=== PATIENT | male | born 1945 ===

== ENCOUNTER 2018-07-07 13:14 | Inpatient (IN) | payer MEDICARE ==
--- NOTE | 2018-07-07 14:40 | ED PDOC ---
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 Son said that he found patient passed out leaning over an object in his room standing up, not on the ground around 1230 today s/p hearing a sound from upstairs. Son reports then calling patient's name to which he woke up a little, but then passed out again for less than a minute. Denies seizure like activity. Patient then regained consciousness slowly and after EMS gave him orange juice, he returned to baseline mental status. He was previously seen at [facility] after a similar episode where he was not admitted and d/c for MRI follow up after a negative ED workup. His MRI a month ago showed dementia, and not stroke. Otherwise, patient currently has no complaints. PMD: Stephane Cortes NIHSS Stroke Scale - Date/Time Evaluation Performed Date Performed: 07/07/18 Time Performed: 13:54 When Was NIHSS Performed: Baseline - How Severe is the Stroke Level of Consciousness: 0=Alert LOC to Questions: 0=Both comments correct LOC to commands: 0=Obeys both correctly Best Gaze: 0=Normal Visual: 0=No visual loss Facial: 0=Normal Motor Arm - Left: 0=No drift Motor Arm - Right: 0=No drift Motor Leg - Left: 0=No drift Motor Leg - Right: 0=No drift Limb Ataxia: 0=Absent Sensory: 0=Normal Best Language: 0=No aphasia Dysarthia: 0=Normal articulation Extinction & Inattention (Neglect): 0=Normal, no object Score: 0 Past Medical History Reviewed: Historical Data, Nursing Documentation, Vital Signs Vital Signs: Last Vital Signs Temp 97.7 F 07/07/18 13:16 Pulse 67 07/07/18 13:16 Resp 16 07/07/18 13:16 BP 141/88 07/07/18 13:16 Pulse Ox 99 07/07/18 13:16 - Medical History PMH: Dementia - Surgical History Surgical History: No Surg Hx - Family History Family History: States: Unknown Family Hx - Living Arrangements Living Arrangements: With Family - Social History Current smoker - smoking cessation education provided: No Alcohol: None Drugs: Denies - Home Medications Home Medications: Ambulatory Orders Medication Instructions Recorded Aspirin [Ecotrin] 81 mg PO DAILY 07/07/18 Divalproex [Depakote DR] 250 mg PO HS 07/07/18 Glimepiride [amaRYL] 2 mg PO DAILY 07/07/18 Memantine HCl/Donepezil HCl 1 cap PO HS 07/07/18 [Namzaric 28 mg-10 mg Capsule] MetFORMIN [glucoPHAGE] 1,000 mg PO BID 07/07/18 Montelukast [Singulair] 10 mg PO HS 07/07/18 Multivit-Min/Folic/Vit K/Lycop 1 tab PO DAILY 07/07/18 [One-A-Day Men's Tablet] Pantoprazole Sodium [Protonix] 40 mg PO DAILY 07/07/18 Ramipril [Altace] 2.5 mg PO DAILY 07/07/18 - Allergies Allergies/Adverse Reactions: Allergies Allergy/AdvReac Type Severity Reaction Status Date / Time No Known Allergies Allergy Verified 07/07/18 13:18 Review of Systems ROS Statement: Except As Marked, All Systems Reviewed And Found Negative Neurological: Positive for: Other (syncopal episode). Negative for: Seizures Physical Exam - Reviewed Nursing Documentation Reviewed: Yes Vital Signs Reviewed: Yes - Physical Exam Appears: Positive for: No Acute Distress Head Exam: Positive for: ATRAUMATIC, NORMAL INSPECTION, NORMOCEPHALIC Skin: Positive for: Normal Color, Warm, Dry Eye Exam: Positive for: Normal appearance, EOMI, PERRL ENT: Positive for: Normal ENT Inspection Neck: Positive for: Normal, Painless ROM, Supple Cardiovascular/Chest: Positive for: Regular Rate, Rhythm Respiratory: Positive for: Normal Breath Sounds. Negative for: Respiratory Distress Gastrointestinal/Abdominal: Positive for: Normal Exam, Soft. Negative for: Tenderness Back: Positive for: Normal Inspection Extremity: Positive for: Normal ROM (all extremities). Negative for: Calf T enderness Neurological/Psych: Positive for: Awake, Alert, Normal Tone, Symmetric/Intact Strength (upper/lower bilateral extremities), Oriented (x3), Mood/Affect (normal), Gait (steady, unassisted), waiter II-XII (intact). Negative for: Motor/Sensory Deficits, Facial Droop - Laboratory Results Result Diagrams: 07/08/18 04:20 07/08/18 04:20 - ECG O2 Sat by Pulse Oximetry: 99 (RA) Pulse Ox Interpretation: Normal - Radiology X-Ray: Interpreted by Ne X-Ray Interpretation: No Acute Disease Medical Decision Making Medical Decision Making: Time: 1422 Initial Impression: syncopal episode in setting of known dementia Initial Plan: --CT head without contrast --EKG --CMP --Magnesium chemistry --Phosphorus chemistry --Trop I --U-dip --CBC with differential --PTT / PT --CXR --Urinalysis --Accucheck --Orthostatic BP --Reevaluation Accession No. : [id number] Patient Name / ID : RAKEL BOYLE / [id number] Exam Date : 07/07/2018 15:15:43 ( Approved ) Study Comment : Sex / Age : M / 73Y Creator : christie rosa Dictator : Vik Sepulveda MD Hat Sizer : Java Security Architect : Vik Sepulveda MD Approver2 : Report Date : 07/07/2018 15:55:57 My Comment : * This report is currently processing and HAS NOT BEEN OFFICIALLY SIGNED BY THE PHYSICIAN - ESTIMATED TIME OF APPROVAL IS 07/07/2018 16:40. Date of service: 07/07/2018 PROCEDURE: CT HEAD WITHOUT CONTRAST. HISTORY: Syncope COMPARISON: None available. TECHNIQUE: Axial computed tomography images were obtained through the head/brain without intravenous contrast. Radiation dose: Total exam DLP = 900.94 mGy-cm. This CT exam was performed using one or more of the following dose reduction techniques: Automated exposure control, adjustment of the mA and/or kV according to patient size, and/or use of iterative reconstruction technique. FINDINGS: HEMORRHAGE: No intracranial hemorrhage. BRAIN: No mass effect or edema. No significant atrophy. Minimal periventricular white matter lucency consistent with chronic microvascular ischemic change. 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 No evidence of acute infarct. VENTRICLES: Unremarkable. No hydrocephalus. CALVARIUM: Unremarkable. PARANASAL SINUSES: Unremarkable as visualized. No significant inflammatory changes. MASTOID AIR CELLS: Unremarkable as visualized. No inflammatory changes. OTHER FINDINGS: None. IMPRESSION: No intracranial mass, hemorrhage or evidence of acute infarct. Minimal chronic white matter ischemic change. Old left basal ganglia lacunar infarct. [address] Beckwith who is agreeable for patient admission for syncope. Scribe Attestation: Documented by Anitha Arana, acting as a scribe for Shira Campa MD. Provider Scribe Attestation: All medical record entries made by the Scribe were at my direction and personally dictated by me. I have reviewed the chart and agree that the record accurately reflects my personal performance of the history, physical exam, medical decision making, and the department course for this patient. I have also personally directed, reviewed, and agree with the discharge instructions and disposition. Disposition - Clinical Impression Clinical Impression: Syncope - Patient ED Disposition Is Patient to be Admitted: Yes - Disposition Disposition Time: 16:45 Condition: STABLE - Pt Status Changed To: Hospital Disposition Of: Inpatient - Admit Certification Admit to Inpatient:: After my assessment, the patient will require hospitalization for at least two midnights. This is because of the severity of symptoms shown, intensity of services needed, and/or the medical risk in this patient being treated as an outpatient. - POA Present On Arrival: Poor Glycemic Control
[2018-07-07 14:47] LABS: BASO # 0.1 K/uL (0.0-0.2); BASO % 1.6 % (0.0-2.0); EOS # 0.6 K/uL (0.0-0.7); EOS % 9.7 % (0.0-4.0); HEMOGLOBIN 13.4 g/dL (12.0-18.0); INR 1.1; LYMPH # 1.5 K/uL (1.0-4.3); LYMPH % 25.9 % (20.0-40.0); MEAN CELL VOLUME 88.8 fl (80.0-94.0); MEAN CORPUSCULAR HGB CONC 33.7 g/dL (33.0-37.0); MONO # 0.4 K/uL (0.0-0.8); NEUT # 3.3 K/uL (1.8-7.0); NEUT % 55.8 % (50.0-75.0); NRBC % 0.1 % (0.0-0.0); PROTHROMBIN TIME 12.1 Seconds (9.8-13.1); RBC 4.47 Mil/uL (4.40-5.90); RED CELL DISTRIBUTION WIDTH 14.3 % (11.5-14.5); WHITE BLOOD COUNT 5.9 K/uL (4.8-10.8)
[2018-07-07 14:49] LABS: PARTIAL THROMBOPLASTIN TIME 36.6 Seconds (25.6-37.1)
[2018-07-07 14:53] LABS: ALB/GLOB RATIO 1.2 (1.0-2.1); ALT/SGPT 27 U/L (21-72); AST/SGOT 23 U/L (17-59); BLOOD UREA NITROGEN 18 mg/dl (9-20); CALCIUM 9.3 mg/dL (8.4-10.2); GFR NON-AFRICAN AMERICAN > 60
[2018-07-07] MEDS ORDERED: Sodium Chloride 0.9% 1,000 ML IV STA (15:44)
--- NOTE | 2018-07-07 16:38 | CT ---
Date of service: 07/07/2018 PROCEDURE: CT HEAD WITHOUT CONTRAST. HISTORY: Syncope COMPARISON: None available. TECHNIQUE: Axial computed tomography images were obtained through the head/brain without intravenous contrast. Radiation dose: Total exam DLP = 900.94 mGy-cm. This CT exam was performed using one or more of the following dose reduction techniques: Automated exposure control, adjustment of the mA and/or kV according to patient size, and/or use of iterative reconstruction technique. FINDINGS: HEMORRHAGE: No intracranial hemorrhage. BRAIN: No mass effect or edema. No significant atrophy. Minimal periventricular white matter lucency consistent with chronic microvascular ischemic change. 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 No evidence of acute infarct. VENTRICLES: Unremarkable. No hydrocephalus. CALVARIUM: Unremarkable. PARANASAL SINUSES: Unremarkable as visualized. No significant inflammatory changes. MASTOID AIR CELLS: Unremarkable as visualized. No inflammatory changes. OTHER FINDINGS: None. IMPRESSION: No intracranial mass, hemorrhage or evidence of acute infarct. Minimal chronic white matter ischemic change. Old left basal ganglia lacunar infarct.
--- NOTE | 2018-07-07 17:33 | RAD ---
Date of service: 07/07/2018 HISTORY: Syncope COMPARISON: No prior. TECHNIQUE: 1 view obtained. FINDINGS: LUNGS: No active pulmonary disease. PLEURA: No significant pleural effusion identified, no pneumothorax apparent. CARDIOVASCULAR: No aortic atherosclerotic calcification present. Normal cardiac size. No pulmonary vascular congestion. OSSEOUS STRUCTURES: No significant abnormalities. VISUALIZED UPPER ABDOMEN: Normal. OTHER FINDINGS: None. IMPRESSION: No active disease.
[2018-07-07 19:07] LABS: URINE BACTERIA RARE (<OCC); URINE BILIRUBIN NEGATIVE (NEGATIVE); URINE BLOOD NEGATIVE (NEGATIVE); URINE CLARITY SLIGHTY-CLOUDY (Clear); URINE COLOR YELLOW (YELLOW); URINE GLUCOSE (UA) 50 mg/dL (NEGATIVE); URINE LEUKOCYTE ESTERASE NEG Leu/uL (Negative); URINE PROTEIN 30 mg/dL (NEGATIVE)
[2018-07-07] MEDS ORDERED: Sodium Chloride 0.9% 1,000 ML IV SCH (22:45)
[2018-07-07] MEDS: Divalproex 250 mg DR(BID formulation) PO SCH (23:04)
[2018-07-08] MEDS ORDERED: Influenza Vaccine 60 mcg/0.5 mL SYR (4YR UP) IM ONE (05:15)
[2018-07-08 05:35] LABS: HEMOGLOBIN 13.3 g/dL (12.0-18.0); MEAN CELL VOLUME 87.7 fl (80.0-94.0); MEAN CORPUSCULAR HEMOGLOBIN 29.7 pg (27.0-31.0); MEAN CORPUSCULAR HGB CONC 33.8 g/dL (33.0-37.0); RBC 4.46 Mil/uL (4.40-5.90); RED CELL DISTRIBUTION WIDTH 14.6 % (11.5-14.5); WHITE BLOOD COUNT 7.4 K/uL (4.8-10.8)
[2018-07-08 05:38] LABS: BLOOD UREA NITROGEN 19 mg/dl (9-20); CALCIUM 9.2 mg/dL (8.4-10.2); GFR NON-AFRICAN AMERICAN > 60; HDL CHOLESTEROL 36 MG/DL (30-70)
[2018-07-08 05:48] LABS: LDL CHOLESTEROL 132 mg/dL (0-129)
[2018-07-08] MEDS ORDERED: Influenza Vaccine (5 YR UP)/PF 60 MCG/0.5 ML SYR IM ONE (06:00)
[2018-07-08 06:08] LABS: T3 1.05 nmol/L (1.49-2.60)
[2018-07-08] MEDS: Pantoprazole 40 mg EC Tab PO SCH (08:53)
[2018-07-08] MEDS: GlipiZIDE 5 mg SR Tab PO SCH (08:54)
--- NOTE | 2018-07-08 09:14 | CP.PCM.CON ---
<Sophia Leon - Last Filed: 07/08/18 19:04> History of Present Illness - History of Present Illness History of Present Illness: Sophia Leon, PGY-1, Cardiology Consult Note for Dr. Moore 73 year old male with past medical history of hypertension and diabetes mellitus presents with dizziness that started last week. Patient reports that he was dizzy while walking from the bed to the bathroom. He felt like he was spinning around the room. Patient reports mild tinnitus but no hearing loss. Patient reports dizziness stopped a few days ago. Patient denied loss of consciousness and said this had never happened before. However, ED note reports patient presented with son and son found patient passed out leaning over an object in the room standing up. Son had denied seizure like activity. Patient then regained consciousness and came back to baseline slowly after drinking orange juice. Patient had MRI for similar episode one month ago showing dementia but not stroke. Patient today denies chest pain, shortness of breath, nausea, diaphoresis. PMH: as stated above PSH: denies FMHx: denies SHx: smoked for a few years with 1-2 cigarettes a day over 20 years ago, denies alcohol or recreational drug use Allergies: NKDA PMD: Dr. Gomez Denies prior stress test or cardiac catheterizations. Review of Systems - Review of Systems Review of Systems: except for what was mentioned in HPI Past Patient History - Past Medical History & Family History Past Medical History?: Yes - Past Social History Alcohol: None Drugs: Denies - CARDIAC Hx Cardiac Disorders: Yes Hx Hypercholesterolemia: Yes Hx Hypertension: Yes - PULMONARY Hx Respiratory Disorders: No - NEUROLOGICAL Hx Dementia: Yes - HEENT Hx HEENT Problems: No - RENAL Hx Chronic Kidney Disease: No - ENDOCRINE/METABOLIC Hx Endocrine Disorders: Yes Hx Diabetes Mellitus Type 2: Yes - HEMATOLOGICAL/ONCOLOGICAL Hx Blood Disorders: No - INTEGUMENTARY Hx Dermatological Problems: No - MUSCULOSKELETAL/RHEUMATOLOGICAL Hx Musculoskeletal Disorders: Yes Hx Falls: Yes - GASTROINTESTINAL Hx Gastrointestinal Disorders: No - GENITOURINARY/GYNECOLOGICAL Hx Genitourinary Disorders: No - PSYCHIATRIC Hx Psychophysiologic Disorder: No Hx Substance Use: No - SURGICAL HISTORY Hx Surgeries: No - ANESTHESIA Hx Anesthesia: Yes Hx Anesthesia Reactions: No Hx Malignant Hyperthermia: No Has any member of the family had a problem w/ anesthesia?: No Meds Home Medications: Home Medication List Medication Instructions Recorded Confirmed Type Atorvastatin [Lipitor] 20 mg PO DAILY #30 tab 07/14/18 Rx DiphenhydrAMINE [Benadryl] 25 mg PO Q6 PRN cap 07/14/18 Rx Metoprolol Tartrate [Lopressor] 12.5 mg PO Q12 #60 tab 07/14/18 Rx hydroCHLOROthiazide [Hydrodiuril] 25 mg PO DAILY #30 tab 07/14/18 Rx Allergies/Adverse Reactions: Allergies Allergy/AdvReac Type Severity Reaction Status Date / Time No Known Allergies Allergy Verified 07/07/18 13:18 - Medications Medications: Current Medications Aspirin (Ecotrin) 81 mg PO DAILY [facility] Last Admin: 07/08/18 08:53 Dose: 81 mg Divalproex Sodium (Depakote Dr(*Bid*)) 250 mg PO HS [facility] Last Admin: 07/07/18 23:04 Dose: 250 mg Glipizide (Glucotrol Xl) 5 mg PO ACB [facility] Last Admin: 07/08/18 08:54 Dose: 5 mg Home Med (Memantine Hcl/Donepezil Hcl [Namzaric 28 Mg-10 Mg Capsule]) 1 cap PO HS [facility] Metformin HCl (Glucophage) 1,000 mg PO BIDWM [facility] Last Admin: 07/08/18 08:53 Dose: 1,000 mg Montelukast Sodium (Singulair) 10 mg PO HS [facility] Pantoprazole Sodium (Protonix Ec Tab) 40 mg PO DAILY [facility] Last Admin: 07/08/18 08:53 Dose: 40 mg Ramipril (Altace) 2.5 mg PO DAILY [facility] Last Admin: 07/08/18 08:53 Dose: 2.5 mg Physical Exam - Constitutional Appears: Well, Non-toxic, No Acute Distress - Head Exam Head Exam: ATRAUMATIC, NORMAL INSPECTION, NORMOCEPHALIC - Eye Exam Eye Exam: EOMI, PERRL - ENT Exam ENT Exam: Mucous Membranes Moist - Respiratory Exam Respiratory Exam: Clear to Auscultation Bilateral, NORMAL BREATHING PATTERN - Cardiovascular Exam Cardiovascular Exam: REGULAR RHYTHM, RRR, +S1, +S2, Systolic Murmur (systolic ejection murmur) - GI/Abdominal Exam GI & Abdominal Exam: Normal Bowel Sounds, Soft. absent: Tenderness - Extremities Exam Extremities exam: Positive for: full ROM, normal inspection. Negative for: pedal edema - Neurological Exam Neurological exam: Alert, CN II-XII Intact, Oriented x3 - Psychiatric Exam Psychiatric exam: Normal Affect, Normal Mood - Skin Skin Exam: Dry, Intact, Normal Color Results - Vital Signs Recent Vital Signs: Last Vital Signs Temp 97.9 F 07/08/18 07:42 Pulse 61 07/08/18 07:42 Resp 18 07/08/18 07:42 BP 160/78 H 07/08/18 08:53 Pulse Ox 96 07/08/18 07:42 - Labs Result Diagrams: 07/08/18 04:20 07/08/18 04:20 Labs: Laboratory Results - last 24 hr 07/07/18 07/07/18 07/07/18 13:17 14:20 14:20 WBC 5.9 RBC 4.47 Hgb 13.4 Hct 39.7 MCV 88.8 MCH 30.0 MCHC 33.7 RDW 14.3 Plt Count 217 MPV 9.0 Neut % (Auto) 55.8 Lymph % (Auto) 25.9 Sierra % (Auto) 7.0 Eos % (Auto) 9.7 H Baso % (Auto) 1.6 Neut # (Auto) 3.3 Lymph # (Auto) 1.5 Sierra # (Auto) 0.4 Eos # (Auto) 0.6 Baso # (Auto) 0.1 PT INR APTT Sodium 140 Potassium 4.0 Chloride 101 Carbon Dioxide 29 Anion Gap 14 BUN 18 Creatinine 1.0 Est GFR ( Amer) > 60 Est GFR (Non-Af Amer) > 60 POC Glucose (mg/dL) 234 H Random Glucose 241 H Calcium 9.3 Phosphorus Magnesium Total Bilirubin 0.4 AST 23 ALT 27 Alkaline Phosphatase 89 Troponin I < 0.0120 Total Protein 7.3 Albumin 4.0 Globulin 3.3 Albumin/Globulin Ratio 1.2 Triglycerides Cholesterol LDL Cholesterol Direct HDL Cholesterol Thyroxine (T4) Total T3 TSH 3rd Generation Urine Color Urine Clarity Urine pH Ur Specific Sully Urine Protein Urine Glucose (UA) Urine Ketones Urine Blood Urine Nitrate Urine Bilirubin Urine Urobilinogen Ur Leukocyte Esterase Urine RBC (Auto) Urine Microscopic WBC Urine Bacteria Hyaline Casts 07/07/18 07/07/18 07/07/18 14:20 18:37 18:39 WBC RBC Hgb Hct MCV MCH MCHC RDW Plt Count MPV Neut % (Auto) Lymph % (Auto) Sierra % (Auto) Eos % (Auto) Baso % (Auto) Neut # (Auto) Lymph # (Auto) Sierra # (Auto) Eos # (Auto) Baso # (Auto) PT 12.1 INR 1.1 APTT 36.6 Sodium Potassium Chloride Carbon Dioxide Anion Gap BUN Creatinine Est GFR ( Amer) Est GFR (Non-Af Amer) POC Glucose (mg/dL) 216 H Random Glucose Calcium Phosphorus Magnesium Total Bilirubin AST ALT Alkaline Phosphatase Troponin I Total Protein Albumin Globulin Albumin/Globulin Ratio Triglycerides Cholesterol LDL Cholesterol Direct HDL Cholesterol Thyroxine (T4) Total T3 TSH 3rd Generation Urine Color Yellow Urine Clarity Slighty-cloudy Urine pH 6.0 Ur Specific Sully 1.020 Urine Protein 30 Urine Glucose (UA) 50 Urine Ketones Negative Urine Blood Negative Urine Nitrate Negative Urine Bilirubin Negative Urine Urobilinogen 4.0 Ur Leukocyte Esterase Neg Urine RBC (Auto) 3 Urine Microscopic WBC 2 Urine Bacteria Rare Hyaline Casts 6-10 H 07/07/18 07/07/18 07/08/18 19:00 21:02 04:20 WBC 7.4 RBC 4.46 Hgb 13.3 Hct 39.2 MCV 87.7 MCH 29.7 MCHC 33.8 RDW 14.6 H Plt Count 232 MPV Neut % (Auto) Lymph % (Auto) Sierra % (Auto) Eos % (Auto) Baso % (Auto) Neut # (Auto) Lymph # (Auto) Sierra # (Auto) Eos # (Auto) Baso # (Auto) PT INR APTT Sodium Potassium Chloride Carbon Dioxide Anion Gap BUN Creatinine Est GFR ( Amer) Est GFR (Non-Af Amer) POC Glucose (mg/dL) 223 H Random Glucose Calcium Phosphorus 3.4 Magnesium 1.9 Total Bilirubin AST ALT Alkaline Phosphatase Troponin I Total Protein Albumin Globulin Albumin/Globulin Ratio Triglycerides Cholesterol LDL Cholesterol Direct HDL Cholesterol Thyroxine (T4) Total T3 TSH 3rd Generation Urine Color Urine Clarity Urine pH Ur Specific Sully Urine Protein Urine Glucose (UA) Urine Ketones Urine Blood Urine Nitrate Urine Bilirubin Urine Urobilinogen Ur Leukocyte Esterase Urine RBC (Auto) Urine Microscopic WBC Urine Bacteria Hyaline Casts 07/08/18 07/08/18 04:20 05:20 WBC RBC Hgb Hct MCV MCH MCHC RDW Plt Count MPV Neut % (Auto) Lymph % (Auto) Sierra % (Auto) Eos % (Auto) Baso % (Auto) Neut # (Auto) Lymph # (Auto) Sierra # (Auto) Eos # (Auto) Baso # (Auto) PT INR APTT Sodium 141 Potassium 4.0 Chloride 103 Carbon Dioxide 30 Anion Gap 12 BUN 19 Creatinine 1.0 Est GFR ( Amer) > 60 Est GFR (Non-Af Amer) > 60 POC Glucose (mg/dL) 132 H Random Glucose 137 H Calcium 9.2 Phosphorus Magnesium Total Bilirubin AST ALT Alkaline Phosphatase Troponin I < 0.0120 Total Protein Albumin Globulin Albumin/Globulin Ratio Triglycerides 179 H Cholesterol 210 H LDL Cholesterol Direct 132 H HDL Cholesterol 36 Thyroxine (T4) 7.35 Total T3 1.05 L TSH 3rd Generation 3.27 Urine Color Urine Clarity Urine pH Ur Specific Sully Urine Protein Urine Glucose (UA) Urine Ketones Urine Blood Urine Nitrate Urine Bilirubin Urine Urobilinogen Ur Leukocyte Esterase Urine RBC (Auto) Urine Microscopic WBC Urine Bacteria Hyaline Casts Assessment & Plan (1) Syncope Assessment and Plan: Orthostatic vital signs did not show significant drop in blood pressure. Echocardiogram shows moderate and AI Will need stress test for further evaluation Status: Acute (2) Hypertension Assessment and Plan: Last blood pressure was 165/88 Will increase dose of ramipril to 5 mg Status: Acute (3) Diabetes mellitus Assessment and Plan: Patient is currently euglycemic Continue with metformin and glipizide. Status: Acute - Date & Time Date: 07/08/18 Time: 09:15 <Haim Beckwith - Last Filed: 07/17/18 18:42> Meds - Medications Medications: Current Medications Aspirin (Ecotrin) 81 mg PO DAILY [facility] Last Admin: 07/17/18 08:35 Dose: 81 mg Atorvastatin Calcium (Lipitor) 20 mg PO DAILY [facility] Last Admin: 07/17/18 08:37 Dose: 20 mg Diphenhydramine HCl (Benadryl) 25 mg PO Q6 PRN PRN Reason: Itching / Pruritus Divalproex Sodium (Depakote Dr(*Bid*)) 250 mg PO [facility] Last Admin: 07/16/18 21:26 Dose: 250 mg Glipizide (Glucotrol Xl) 5 mg PO ACB [facility] Last Admin: 07/17/18 08:36 Dose: 5 mg Home Med (Memantine Hcl/Donepezil Hcl [Namzaric 28 Mg-10 Mg Capsule]) 1 cap PO [facility] Last Admin: 07/16/18 21:25 Dose: 1 cap Hydrochlorothiazide (Hydrodiuril) 25 mg PO DAILY [facility] Last Admin: 07/17/18 08:37 Dose: 25 mg Insulin Human Lispro (Humalog) 0 units SC ACHS [facility]; Protocol Last Admin: 07/17/18 16:52 Dose: Not Given Metformin HCl (Glucophage) 1,000 mg PO BIDWM [facility] Last Admin: 07/17/18 16:52 Dose: Not Given Metoprolol Tartrate (Lopressor) 12.5 mg PO Q12 [facility] Last Admin: 07/17/18 08:37 Dose: 12.5 mg Montelukast Sodium (Singulair) 10 mg PO [facility] Last Admin: 07/16/18 21:26 Dose: 10 mg Pantoprazole Sodium (Protonix Ec Tab) 40 mg PO DAILY [facility] Last Admin: 07/17/18 08:37 Dose: 40 mg Ramipril (Altace) 5 mg PO DAILY [facility] Last Admin: 07/17/18 08:35 Dose: 5 mg Results - Vital Signs Recent Vital Signs: Last Vital Signs Temp 97.8 F 07/17/18 16:41 Pulse 83 07/17/18 16:41 Resp 16 07/17/18 16:41 BP 107/66 07/17/18 16:41 Pulse Ox 95 07/17/18 16:41 - Labs Result Diagrams: 07/14/18 05:00 07/14/18 05:00 Labs: Laboratory Results - last 24 hr 07/16/18 07/16/18 07/17/18 21:02 22:30 05:18 POC Glucose (mg/dL) 172 H 167 H 152 H 07/17/18 07/17/18 11:17 16:08 POC Glucose (mg/dL) 192 H 216 H Assessment & Plan (1) Aortic stenosis Status: Acute (2) CAD (coronary artery disease) Status: Acute (3) Abnormal stress test Status: Acute (4) Syncope Status: Acute Priority: High (5) Hypertension Status: Chronic Priority: High (6) Hyperglycemia Status: Acute Priority: High (7) Diabetes mellitus Status: Chronic Priority: Medium
--- NOTE | 2018-07-08 13:19 | CARD ---
APPROVED REPORT Date of service: 07/07/2018 EKG Measurement Heart [id number] <Conclusion> Normal sinus rhythm Normal ECG
--- NOTE | 2018-07-08 14:50 | PCM.EEG ---
Electroencephalogram Report - Electroencephalogram Report Procedure Date: 07/08/18 Medication: Deapkote, Ramipril Interpretation: Technical Information: This was a 16 -channel EEG, 1-channel EKG routine EEG performed using an [employer]form machine. Electrodes were applied using the 10/20 international placement system. Start; 11;21 End; 12;06 Total 45 min linical Information: syncope During resting wakefulness there was a symmetric posterior dominant rhythm at 8.5-9.5 Hz, 30-50 uV, which was reactive to eye opening and closing. Drowsiness (11;42) was associated with fragmentation of the posterior dominant rhythm and with slow roving eye movements. Light sleep (12;04) was recorded and was characterized by central vertex waves, sleep spindles, and bilateral theta slowing. Hyperventilation was not performed. Photic stimulation was performed and there were no changes on the record. Focal abnormality; none ECG was associated with a normal sinus rhythm. Impression: This is a normal awake drowsy and sleep electroencephalogram.
--- NOTE | 2018-07-08 14:56 | CP.PCM.HP ---
History of Present Illness - History of Present Illness History of Present Illness: CC: Neurological deficit. 73 y/o M, PMH: Dementia, HTN, DMII, High-Cholesterol, Pt was brought to ER [facility] on 07/07/28 due to neurological deficit associated to syncopal episode while at home lining over the wall, associated to LOC, denied fall, pain or any injury. Worsening symptoms: AMS, as per son, after episode, he was then calling people to which he woke up a little, but then passed out again for less than a minute, after EMS gave him [place] juice he returned to his base line of mental status. Similar episode one month ago, Patient was seen in [facility], MRI Brain no acute changes No aggravated factor. Denied: Fever, chills, n/v/d, abdominal pain, CP, SOB, cough, Hx seizure, sick contact, recent travel out of [facility]. CXR: No active disease. EKG: Normal sinus rhythm. 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 Present on Admission - Present on Admission Any Indicators Present on Admission: No Review of Systems - Constitutional Constitutional: Other (negative) - EENT Eyes: Requires Corrective Lenses Ears: Other (negative) Nose/Mouth/Throat: Other (negative) - Cardiovascular Cardiovascular: Other (negative) - Respiratory Respiratory: Other (negative) - Gastrointestinal Gastrointestinal: Other (negative) - Genitourinary Genitourinary: Other (negative) - Musculoskeletal Musculoskeletal: Other (negative) - Integumentary Integumentary: Other (negative) - Neurological Neurological: Memory Loss, Syncope - Psychiatric Psychiatric: Other (negative) - Endocrine Endocrine: Other (negative) - Hematologic/Lymphatic Hematologic: Other (negative) Past Patient History - Past Medical History & Family History Past Medical History?: Yes Pertinent Family History: Unknown - Past Social History Smoking Status: Former Smoker Alcohol: None Drugs: Denies Home Situation {Lives}: With Family - CARDIAC Hx Cardiac Disorders: Yes Hx Hypercholesterolemia: Yes Hx Hypertension: Yes - PULMONARY Hx Respiratory Disorders: No - NEUROLOGICAL Hx Neurological Disorder: Yes Hx Dementia: Yes Hx Syncope: Yes - HEENT Hx HEENT Problems: No - RENAL Hx Chronic Kidney Disease: No - ENDOCRINE/METABOLIC Hx Endocrine Disorders: Yes Hx Diabetes Mellitus Type 2: Yes - HEMATOLOGICAL/ONCOLOGICAL Hx Blood Disorders: No - INTEGUMENTARY Hx Dermatological Problems: No - MUSCULOSKELETAL/RHEUMATOLOGICAL Hx Musculoskeletal Disorders: Yes Hx Falls: Yes - GASTROINTESTINAL Hx Gastrointestinal Disorders: No - GENITOURINARY/GYNECOLOGICAL Hx Genitourinary Disorders: No - PSYCHIATRIC Hx Psychophysiologic Disorder: No Hx Substance Use: No - SURGICAL HISTORY Hx Surgeries: No - ANESTHESIA Hx Anesthesia: Yes Hx Anesthesia Reactions: No Hx Malignant Hyperthermia: No Has any member of the family had a problem w/ anesthesia?: No Meds Home Medications: Home Medication List Medication Instructions Recorded Confirmed Type Atorvastatin [Lipitor] 20 mg PO DAILY #30 tab 07/14/18 Rx DiphenhydrAMINE [Benadryl] 25 mg PO Q6 PRN cap 07/14/18 Rx Metoprolol Tartrate [Lopressor] 12.5 mg PO Q12 #60 tab 07/14/18 Rx hydroCHLOROthiazide [Hydrodiuril] 25 mg PO DAILY #30 tab 07/14/18 Rx Allergies/Adverse Reactions: Allergies Allergy/AdvReac Type Severity Reaction Status Date / Time No Known Allergies Allergy Verified 07/07/18 13:18 Physical Exam - Constitutional Appears: No Acute Distress - Head Exam Head Exam: NORMAL INSPECTION - Eye Exam Eye Exam: PERRL - ENT Exam ENT Exam: Normal Exam - Neck Exam Neck exam: Positive for: Normal Inspection - Respiratory Exam Respiratory Exam: NORMAL BREATHING PATTERN - Cardiovascular Exam Cardiovascular Exam: REGULAR RHYTHM, Systolic Murmur (2/6 LSB Ao) - GI/Abdominal Exam GI & Abdominal Exam: Normal Bowel Sounds, Soft - Extremities Exam Extremities exam: Positive for: normal inspection - Back Exam Back exam: NORMAL INSPECTION - Neurological Exam Neurological exam: Alert, Oriented x3 Additional comments: Obeys commands, no facial droop. no motor/sensory deficit. - Psychiatric Exam Psychiatric exam: Normal Mood - Skin Skin Exam: Warm Results - Vital Signs Recent Vital Signs: Last Vital Signs Temp 97.5 F L 07/08/18 12:00 Pulse 73 07/08/18 12:00 Resp 18 07/08/18 12:00 BP 169/82 H 07/08/18 12:00 Pulse Ox 93 L 07/08/18 12:00 reviewed Dena - Labs Result Diagrams: 07/14/18 05:00 07/14/18 05:00 Labs: Laboratory Results - last 24 hr 03/07/07/18 07/07/18 14:20 18:37 18:39 WBC RBC Hgb Hct MCV MCH MCHC RDW Plt Count Sodium Potassium Chloride Carbon Dioxide Anion Gap BUN Creatinine Est GFR ( Amer) Est GFR (Non-Af Amer) POC Glucose (mg/dL) 216 H Random Glucose Hemoglobin A1c Calcium Phosphorus Magnesium Troponin I < 0.0120 Triglycerides Cholesterol LDL Cholesterol Direct HDL Cholesterol Vitamin B12 Thyroxine (T4) Total T3 TSH 3rd Generation Urine Color Yellow Urine Clarity Slighty-cloudy Urine pH 6.0 Ur Specific [place] 1.020 Urine Protein 30 Urine Glucose (UA) 50 Urine Ketones Negative Urine Blood Negative Urine Nitrate Negative Urine Bilirubin Negative Urine Urobilinogen 4.0 Ur Leukocyte Esterase Neg Urine RBC (Auto) 3 Urine Microscopic WBC 2 Urine Bacteria Rare Hyaline Casts 6-10 H 07/07/18 07/07/18 07/08/18 19:00 21:02 04:20 WBC 7.4 RBC 4.46 Hgb 13.3 Hct 39.2 MCV 87.7 MCH 29.7 MCHC 33.8 RDW 14.6 H Plt Count 232 Sodium Potassium Chloride Carbon Dioxide Anion Gap BUN Creatinine Est GFR ( Amer) Est GFR (Non-Af Amer) POC Glucose (mg/dL) 223 H Random Glucose Hemoglobin A1c Calcium Phosphorus 3.4 Magnesium 1.9 Troponin I Triglycerides Cholesterol LDL Cholesterol Direct HDL Cholesterol Vitamin B12 Thyroxine (T4) Total T3 TSH 3rd Generation Urine Color Urine Clarity Urine pH Ur Specific [place] Urine Protein Urine Glucose (UA) Urine Ketones Urine Blood Urine Nitrate Urine Bilirubin Urine Urobilinogen Ur Leukocyte Esterase Urine RBC (Auto) Urine Microscopic WBC Urine Bacteria Hyaline Casts 07/08/18 07/08/18 07/08/18 04:20 04:20 05:20 WBC RBC Hgb Hct MCV MCH MCHC RDW Plt Count Sodium 141 Potassium 4.0 Chloride 103 Carbon Dioxide 30 Anion Gap 12 BUN 19 Creatinine 1.0 Est GFR ( Amer) > 60 Est GFR (Non-Af Amer) > 60 POC Glucose (mg/dL) 132 H Random Glucose 137 H Hemoglobin A1c 9.6 H Calcium 9.2 Phosphorus Magnesium Troponin I < 0.0120 Triglycerides 179 H Cholesterol 210 H LDL Cholesterol Direct 132 H HDL Cholesterol 36 Vitamin B12 Thyroxine (T4) 7.35 Total T3 1.05 L TSH 3rd Generation 3.27 Urine Color Urine Clarity Urine pH Ur Specific [place] Urine Protein Urine Glucose (UA) Urine Ketones Urine Blood Urine Nitrate Urine Bilirubin Urine Urobilinogen Ur Leukocyte Esterase Urine RBC (Auto) Urine Microscopic WBC Urine Bacteria Hyaline Casts 07/08/18 07/08/18 07/08/18 09:40 10:36 12:45 WBC RBC Hgb Hct MCV MCH MCHC RDW Plt Count Sodium Potassium Chloride Carbon Dioxide Anion Gap BUN Creatinine Est GFR ( Amer) Est GFR (Non-Af Amer) POC Glucose (mg/dL) 290 H Random Glucose Hemoglobin A1c Calcium Phosphorus Magnesium Troponin I < 0.0120 Triglycerides Cholesterol LDL Cholesterol Direct HDL Cholesterol Vitamin B12 309 Thyroxine (T4) Total T3 TSH 3rd Generation Urine Color Urine Clarity Urine pH Ur Specific [place] Urine Protein Urine Glucose (UA) Urine Ketones Urine Blood Urine Nitrate Urine Bilirubin Urine Urobilinogen Ur Leukocyte Esterase Urine RBC (Auto) Urine Microscopic WBC Urine Bacteria Hyaline Casts reviewed J.P. - EKG Data EKG comments: reviewed J.P. - Imaging and Cardiology Chest x-ray Status: Report reviewed by me (KeaganP.) CT scan - head Status: Report reviewed by me (J.P.) Assessment & Plan (1) Syncope Status: Acute Priority: High (2) Hypertension Status: Chronic Priority: High (3) Hyperglycemia Status: Acute Priority: High (4) Diabetes mellitus Status: Chronic Priority: Medium (5) Dementia Status: Chronic Priority: High - Assessment and Plan (Free Text) Plan: F/U EEG, CTA Head/Neck. Carotid & Vertebral U-S, continue Depakote. ASA, Glucophae, Glucotrol and rest of Tx. Cardiology consult appreciated. - Date & Time Date: 07/08/18 Time: 12:50
[2018-07-08] MEDS ORDERED: Sodium Chloride 0.9% 50 ML IV ONE (17:05)
[2018-07-08] MEDS ORDERED: Iodixanol 320 MG/ML 100 ML BOTTLE IV ONE (17:05)
--- NOTE | 2018-07-08 17:20 | CARD ---
APPROVED REPORT Date of service: 07/08/2018 EKG Measurement Heart [id number] <Conclusion> Normal sinus rhythm Normal ECG
--- NOTE | 2018-07-08 20:14 | CARD ---
APPROVED REPORT Date of service: 07/08/2018 EXAM: Two-dimensional and M-mode echocardiogram with Doppler and color Doppler. Other Information Quality : GoodRhythm : NSR INDICATION Syncope 2D DIMENSIONS IVSd1.54 (0.7-1.1cm)LVDd4.44 (3.9-5.9cm) LVOT Diameter2.34 (1.8-2.4cm)PWd1.53 (0.7-1.1cm) IVSs1.89 (0.8-1.2cm)LVDs2.85 (2.5-4.0cm) FS (%) 35.7 %PWs1.72 (0.8-1.2cm) M-Mode DIMENSIONS Left Atrium (MM)3.68 (2.5-4.0cm)IVSd1.09 (0.7-1.1cm) Aortic Root3.50 (2.2-3.7cm)LVDd5.03 (4.0-5.6cm) Aortic Cusp Exc.1.47 (1.5-2.0cm)PWd1.47 (0.7-1.1cm) IVSs1.91 cmFS (%) 49 % LVDs2.56 (2.0-3.8cm)PWs1.91 cm Aortic Valve AoV Peak Bjyjfxbp012.2cm/sAoV VTI68.1cmAO Peak GR.44mmHg LVOT Peak Bbfqiwdy834.4cm/sLVOT VTI23.26cmAO Mean GR.26mmHg BARRY (VMAX)0.61kg0CZX (VTI)0.83eq4JJ P 1/2 Ntmc669qz Mitral Valve MV E Acnttvae20.6cm/sMV DECEL YPFI590jfVJ A Auadning42.7cm/s MV EXF465peK/A ratio0.7MVA (PHT)2.07cm2 TDI Lateral E' Peak V6.60cm/sMedial E' Peak V4.81cm/sE/Lateral E'9.3 E/Medial E'12.8 Tricuspid Valve TR Peak Sdhveliq519iz/sRAP VZHWPMSS16pkUqQF Peak Gr.15mmHg TOGP68bjRz LEFT VENTRICLE The left ventricle is normal size. There is moderate concentric left ventricular hypertrophy. The left ventricular systolic function is normal. The estimated ejection fraction is 55-60% No regional wall motion abnormalities noted.. Transmitral Doppler flow pattern is Grade I-abnormal relaxation pattern. No left ventricle thrombus noted on this study. There is no ventricular septal defect visualized. There is no left ventricular aneurysm. There is no mass noted in the left ventricle. RIGHT VENTRICLE The right ventricle is normal size. There is normal right ventricular wall thickness. The right ventricular systolic function is normal. ATRIA The left atrium size is normal. The right atrium size is normal. The interatrial septum is intact with no evidence for an atrial septal defect. AORTIC VALVE The aortic valve is normal in structure. Moderate aortic regurgitation is present. There is moderate aortic valvular stenosis. Peak aortic velocity is - 3.5 m/sec. Calculated AV area is -1.5 cm2. Correlate clinically. There is no aortic valvular vegetation. MITRAL VALVE The mitral valve is normal in structure. There is no evidence of mitral valve prolapse. There is no mitral valve stenosis. There is no mitral valve regurgitation noted. TRICUSPID VALVE The tricuspid valve is normal in structure. There is mild tricuspid valve regurgitation noted. RVSP is calculatde at 20 mm Hg. There is no tricuspid valve prolapse or vegetation. There is no tricuspid valve stenosis. PULMONIC VALVE The pulmonary valve is normal in structure. There is no pulmonic valvular regurgitation. There is no pulmonic valvular stenosis. GREAT VESSELS The aortic root is normal in size. The ascending aorta is normal in size. The pulmonary artery is normal. The IVC is normal in size and collapses >50% with inspiration. PERICARDIAL EFFUSION There is no pericardial effusion. There is no pleural effusion. <Conclusion> There is moderate concentric left ventricular hypertrophy. The estimated ejection fraction is 55-60% Transmitral Doppler flow pattern is Grade I-abnormal relaxation pattern. The left atrium size is normal. Moderate aortic regurgitation is present. There is moderate aortic valvular stenosis. Peak aortic velocity is - 3.5 m/sec. Calculated AV area is -1.5 cm2. Correlate clinically. There is mild tricuspid valve regurgitation noted. RVSP is calculatde at 20 mm Hg.
[2018-07-08] MEDS: Divalproex 250 mg DR(BID formulation) PO SCH (21:02)
[2018-07-08] MEDS: Patient's Own Med (Memantine Hcl/Donepezil Hcl [Namzaric 28 Mg-10 Mg Capsule] 1 CAP) PO SCH (21:02)
--- NOTE | 2018-07-09 10:16 | CT ---
Date of service: 07/08/2018 PROCEDURE: CT Angiography of the Brain and Neck. HISTORY: r/o vbi COMPARISON: None available. TECHNIQUE: CT angiography of the head and neck was performed following intravenous contrast administration. Coronal and sagittal maximum intensity projection reformatted images were generated. Contrast Dose: Visipaque 320, 90 cc Radiation dose: Total exam DLP = 444.78 mGy-cm. This CT exam was performed using one or more of the following dose reduction techniques: Automated exposure control, adjustment of the mA and/or kV according to patient size, and/or use of iterative reconstruction technique. FINDINGS: INTERNAL CEREBRAL ARTERIES: Note is made of partially calcified atherosclerosis of the bilateral cavernous internal carotid artery segments without significant stenosis. The skull base, petrous, and supraclinoid segments are bilaterally widely patent. ANTERIOR CEREBRAL ARTERIES: There is hypoplasia of the right A1 YOVANI segment. The left A1 and bilateral A2 segments are widely patent. Smaller distal branches unremarkable, as visualized. MIDDLE CEREBRAL ARTERIES: Unremarkable. M1 and M2 segments are widely patent. Perisylvian branches grossly symmetric. POSTERIOR CIRCULATION: Basilar Artery: Unremarkable. Distal Vertebral Arteries: Left dominant vertebrobasilar circulation with both vertebral arteries patent throughout. Posterior Cerebral Arteries: Patent bilateral posterior arteries are identified with mild left hypoplasia identified. Posterior Inferior Cerebellar Arteries: Unremarkable. NECK CTA: Aortic Arch: Normal three vessel arch identified. Common Carotid arteries: The bilateral common carotid appear widely patent from their origins to their bifurcations with no significant stenosis appreciated. No evidence to suggest common carotid artery dissection. Limited atherosclerotic plaques identified at the bilateral carotid bulbs, right greater than left without significant stenosis occurring (than 25 percent). Trace proximal right common carotid artery atherosclerosis identified. Internal Carotid arteries: No significant stenosis is appreciated throughout the cervical internal carotid artery segments bilaterally and there is no evidence of dissection either. External Carotid arteries: Appear unremarkable bilaterally. Vertebral arteries: The bilateral vertebral arteries appear normal in caliber from their origins to their distal cervical segments. No significant stenosis or definite pattern of dissection. ANEURYSM/ VASCULAR MALFORMATIONS: None. OTHER FINDINGS: Bilateral thyroid hypodensities are identified suspicious for complex cysts or nodules for which follow-up thyroid ultrasonography can be utilized for added characterization. IMPRESSION: 1. No large vessel occlusion is identified in CT angiography of the head and neck or significant stenosis. Limited atherosclerotic changes seen at the bilateral carotid bulbs, right greater than left and proximal right common carotid artery. Mild atherosclerosis identified in the bilateral cavernous internal artery segments as discussed above. This results in a mild right ICA origin stenosis. 2. Limited congenital variants as discussed above primarily in the intracranial circulation. 3. Incidental bilateral thyroid nodules are complex cyst for which follow-up ultrasonography can be utilized for added characterization. Concordant preliminary report from [facility], 07/08/2018, 8:46 p.m..
--- NOTE | 2018-07-09 11:36 | CP.PCM.PN ---
Subjective - Date & Time of Evaluation Date of Evaluation: 07/09/18 Time of Evaluation: 11:34 - Subjective Subjective: Sophia Leon, PGY-1, Cardiology Progress Note for Dr. Moore Patient seen and evaluated at bedside. Patient had no acute overnight events. Today, patient reports remembering losing consciousness but he is still confused today. Patient denies any other symptoms at this time. Objective - Vital Signs/Intake and Output Vital Signs (last 24 hours): Temp Pulse Resp BP Pulse Ox 97.5 F L 72 20 150/73 94 L 07/09/18 08:25 07/09/18 08:46 07/09/18 08:25 07/09/18 08:54 07/09/18 08:25 - Medications Medications: Current Medications Aspirin (Ecotrin) 81 mg PO DAILY [facility] Last Admin: 07/08/18 08:53 Dose: 81 mg Divalproex Sodium (Depakote Dr(*Bid*)) [address] [facility] Last Admin: 07/08/18 21:02 Dose: 250 mg Glipizide (Glucotrol Xl) 5 mg PO ACB [facility] Last Admin: 07/08/18 08:54 Dose: 5 mg Home Med (Memantine Hcl/Donepezil Hcl [Namzaric 28 Mg-10 Mg Capsule]) 1 cap PO HS [facility] Last Admin: 07/08/18 21:02 Dose: 1 cap Metformin HCl (Glucophage) 1,000 mg PO BIDWM [facility] Last Admin: 07/09/18 08:51 Dose: Not Given Montelukast Sodium (Singulair) [address] [facility] Last Admin: 07/08/18 21:01 Dose: 10 mg Pantoprazole Sodium (Protonix Ec Tab) 40 mg PO DAILY [facility] Last Admin: 07/08/18 08:53 Dose: 40 mg Ramipril (Altace) 5 mg PO DAILY [facility] Last Admin: 07/09/18 08:54 Dose: 5 mg - Labs Labs: 07/08/18 04:20 07/08/18 04:20 PT 12.1 Seconds (9.8-13.1) 07/07/18 14:20 INR 1.1 07/07/18 14:20 APTT 36.6 Seconds (25.6-37.1) 07/07/18 14:20 - Constitutional Appears: Well, Non-toxic, No Acute Distress - Head Exam Head Exam: ATRAUMATIC, NORMAL INSPECTION, NORMOCEPHALIC - Eye Exam Eye Exam: EOMI, PERRL - ENT Exam ENT Exam: Mucous Membranes Moist - Respiratory Exam Respiratory Exam: Clear to Auscultation Bilateral, NORMAL BREATHING PATTERN - Cardiovascular Exam Cardiovascular Exam: REGULAR RHYTHM, RRR, +S1, +S2, Systolic Murmur (systolic ejection murmur) - GI/Abdominal Exam GI & Abdominal Exam: Normal Bowel Sounds, Soft. absent: Tenderness - Extremities Exam Extremities exam: Positive for: full ROM, normal inspection. Negative for: pedal edema - Neurological Exam Neurological exam: Alert, CN II-XII Intact, Oriented x3 - Psychiatric Exam Psychiatric exam: Normal Affect, Normal Mood - Skin Skin Exam: Dry, Intact, Normal Color Assessment and Plan (1) Syncope Assessment & Plan: Orthostatic vital signs did not show significant drop in blood pressure. Echocardiogram shows moderate and AI EKG: NSR Tropx3: unremarkable Will need stress test for further evaluation Status: Acute (2) Hypertension Assessment & Plan: Last blood pressure was 150/73 Continue ramipril 5 mg Status: Chronic (3) Diabetes mellitus Assessment & Plan: Patient is currently euglycemic Continue with metformin and glipizide. Status: Chronic
--- NOTE | 2018-07-09 13:10 | US ---
Date of service: The 07/09/2018 PROCEDURE: Duplex ultrasound of the carotid and vertebral arteries. HISTORY: syncope COMPARISON: None available. TECHNIQUE: Grayscale and duplex Doppler evaluation of the cervical carotid and vertebral arteries were performed. The common carotid, carotid bifurcations and cervical ICA and proximal ECA were evaluated. The vertebral arteries were evaluated for gross patency and direction. FINDINGS: There is diffuse intimal thickening. There are calcified atherosclerotic plaques in the carotid bulbs and proximal internal carotid arteries. The arteries are tortuous. RIGHT CAROTID ARTERIES: Common Carotid Artery: Normal. Maximal flow velocity of 85.3 cm/s. Carotid Bifurcation: Normal. Internal Carotid Artery:Normal. Maximal flow velocity of 65.8 cm/s. External Carotid Artery (proximal branches): Normal. Maximal flow velocity of 46.7 cm/s. ICA/CCA Ratio: 1.0 LEFT CAROTID ARTERIES: Common Carotid Artery: Normal. Maximal flow velocity of 86.3 cm/s. Carotid Bifurcation: Normal. Internal Carotid Artery:Normal. Maximal flow velocity of 86.7 cm/s. External Carotid Artery (proximal branches): Normal. Maximal flow velocity of 77.3 cm/s. ICA/CCA Ratio: 1.2 VERTEBRAL ARTERIES: Right Vertebral Artery: Patent. Antegrade flow. Left Vertebral Artery: Patent. Antegrade flow. OTHER FINDINGS: No atherosclerotic calcification present IMPRESSION: No evidence of hemodynamically significant stenosis in the internal carotid arteries by peak systolic velocity criteria. Patent bilateral vertebral arteries with antegrade flow.
[2018-07-09] MEDS: GlipiZIDE 5 mg SR Tab PO SCH (13:30)
[2018-07-09] MEDS: Pantoprazole 40 mg EC Tab PO SCH (13:30)
[2018-07-09] MEDS: Divalproex 250 mg DR(BID formulation) PO SCH (21:32)
[2018-07-09] MEDS: Patient's Own Med (Memantine Hcl/Donepezil Hcl [Namzaric 28 Mg-10 Mg Capsule] 1 CAP) PO SCH (21:32)
[2018-07-09] MEDS: Insulin Lispro (humaLOG) 100 Units/ml Inj SC SCH (21:52)
[2018-07-10] MEDS: Insulin Lispro (humaLOG) 100 Units/ml Inj SC SCH ×4 (10:31→22:00)
[2018-07-10] MEDS: GlipiZIDE 5 mg SR Tab PO SCH (10:33)
[2018-07-10] MEDS: Pantoprazole 40 mg EC Tab PO SCH (10:34)
--- NOTE | 2018-07-10 15:53 | CARD ---
APPROVED REPORT Date of service: 07/08/2018 Protocol: LEXISCAN Test Type: lexiscan Medications: ASPIRIN 81MG DEPAKOTE 250MG GLUCOTROL XL 5MG GLUCOPHAGE 1000MG SINGULAR 10 PROTONIX 40MG ALTACE 5MG Medical History: Hypertension, Hypercholesterolemia,Diabetes, Smoker Target HR: 146 bpm Resting ECG: normal Resting Heart Rate: 67 bpm Resting Blood Pressure: /mmHg submaximum (85%): 124 bpm TEST SUMMARY PREINJECTPRE-INJEC05:[id number]/80.0. [id number]. INJECTIONNS FLUSH00:[id number]/79.0. INJECTIONNUC MED00:[id number]/79.3. [id number]/74.0. POST EXERCISE Reason for Termination: Protocol completed Target HR: No Max HR: 92 bpm 71% of Maximum Predicted HR: 146 bpm Exercise duration: 01:00 min:sec, 0 Stage Exercise capacity: 1.0METs Max Blood Pressure: 144/79mmHg Blood Pressure response to exercise: n/a Heart Rate response to exercise: n/a Chest Pain: No, none Angina index: 0 Arrhythmia: No, none ST Change: No, none Deviation: 0 mm EXAM: Myocardial Perfusion REST/STRESS Image QualityGood Imaging Protocol The imaging protocol used to acquire images was Stress Tc-99m/rest Tc-99m 1 day Stress Spect myocardial perfusion imaging was performed in supine position 137 minutes following the injection of 10 mCi of Tc-99 Myoview. Time of rest injection: 14:30 Time of rest imagin:50 At peak stress, the patient was injected intravenously with 10mCi of Tc-99 tetrofosmin after an infusion time of minutes and seconds. Time of stress injection: 12:33 Time of stress imagin:50 Gated Rest Spect was performed 140 minutes after intravenous Tc-99 Myoview injection. The images were gated to evaluate regional wall motion and calculate ventricular ejection fraction. NUCLEAR IMAGE INTERPRETATION Study quality was good. Left Ventricular size was Normal at Rest and Stress. LV Perfusion 1 Perfusion Defect Location: mid anteroseptal,apical lateral Perfusion Defect Size: Small (1-2 segments) Perfusion Defect Severity: Mild Type of Perfusion Defect: Reversible TCD/TID: No CONCLUSION 1. - Mild anterolateral wall defect ( < 5% myocardial involvement ) 2. - Low probability for significant obstructive CAD 3. - Normal LVEF Recommendation - Aggressive medical management and risk factor modification
--- NOTE | 2018-07-10 15:57 | CP.PCM.PN ---
Subjective - Date & Time of Evaluation Date of Evaluation: 07/10/18 Time of Evaluation: 15:54 - Subjective Subjective: moderate on echo with syncope stress test mildly abnormal plan for cath Thursday/Thursday depending on lab Objective - Vital Signs/Intake and Output Vital Signs (last 24 hours): Temp Pulse Resp BP Pulse Ox 97.6 F 83 18 139/70 97 07/10/18 12:00 07/10/18 12:00 07/10/18 12:00 07/10/18 12:00 07/10/18 12:00 - Medications Medications: Current Medications Aspirin (Ecotrin) 81 mg PO DAILY [facility] Last Admin: 07/10/18 10:34 Dose: 81 mg Divalproex Sodium (Depakote Dr(*Bid*)) 250 mg PO [facility] Last Admin: 07/09/18 21:32 Dose: 250 mg Glipizide (Glucotrol Xl) 5 mg PO ACB [facility] Last Admin: 07/10/18 10:33 Dose: 5 mg Home Med (Memantine Hcl/Donepezil Hcl [Namzaric 28 Mg-10 Mg Capsule]) 1 cap PO [facility] Last Admin: 07/09/18 21:32 Dose: 1 cap Insulin Human Lispro (Humalog) 0 units SC [facility]; Protocol Last Admin: 07/10/18 13:16 Dose: 1 u Metformin HCl (Glucophage) 1,000 mg PO BIDWM [facility] Last Admin: 07/10/18 10:34 Dose: 1,000 mg Montelukast Sodium (Singulair) 10 mg PO [facility] Last Admin: 07/09/18 21:32 Dose: 10 mg Pantoprazole Sodium (Protonix Ec Tab) 40 mg PO DAILY [facility] Last Admin: 07/10/18 10:34 Dose: 40 mg Ramipril (Altace) 5 mg PO DAILY [facility] Last Admin: 07/10/18 10:34 Dose: 5 mg - Labs Labs: 07/08/18 04:20 07/08/18 04:20 PT 12.1 Seconds (9.8-13.1) 07/07/18 14:20 INR 1.1 07/07/18 14:20 APTT 36.6 Seconds (25.6-37.1) 07/07/18 14:20 - Constitutional Appears: Well - Head Exam Head Exam: ATRAUMATIC, NORMAL INSPECTION, NORMOCEPHALIC - Eye Exam Eye Exam: EOMI, Normal appearance, PERRL Pupil Exam: NORMAL ACCOMODATION, PERRL - ENT Exam ENT Exam: Mucous Membranes Moist, Normal Exam - Neck Exam Neck Exam: Full ROM, Normal Inspection. absent: Lymphadenopathy - Respiratory Exam Respiratory Exam: Clear to Ausculation Bilateral, NORMAL BREATHING PATTERN - Cardiovascular Exam Cardiovascular Exam: REGULAR RHYTHM, +S1, +S2, Murmur - GI/Abdominal Exam GI & Abdominal Exam: Soft, Normal Bowel Sounds. absent: Tenderness - Extremities Exam Extremities Exam: Full ROM, Normal Capillary Refill, Normal Inspection. absent: Joint Swelling, Pedal Edema - Back Exam Back Exam: NORMAL INSPECTION - Neurological Exam Neurological Exam: Alert, Awake, CN II-XII Intact, Normal Gait, Oriented x3 - Psychiatric Exam Psychiatric exam: Normal Affect, Normal Mood - Skin Skin Exam: Dry, Intact, Normal Color, Warm Assessment and Plan (1) Aortic stenosis Assessment & Plan: plan for [facility] Status: Acute (2) Abnormal stress test Assessment & Plan: add bb Status: Acute (3) Hyperglycemia Status: Acute (4) Syncope Status: Acute (5) Diabetes mellitus Status: Chronic
--- NOTE | 2018-07-10 16:48 | CP.PCM.PN ---
Subjective - Date & Time of Evaluation Date of Evaluation: 07/10/18 Time of Evaluation: 11:40 - Subjective Subjective: F/U Syncope No SOB,no CP, no chest congestion. Objective - Vital Signs/Intake and Output Vital Signs (last 24 hours): Temp Pulse Resp BP Pulse Ox 98.6 F 84 18 110/69 92 L 07/10/18 16:03 07/10/18 16:03 07/10/18 16:03 07/10/18 16:03 07/10/18 16:03 - Medications Medications: Current Medications Aspirin (Ecotrin) 81 mg PO DAILY [facility] Last Admin: 07/10/18 10:34 Dose: 81 mg Divalproex Sodium (Depakote Dr(*Bid*)) 250 mg PO [facility] Last Admin: 07/09/18 21:32 Dose: 250 mg Glipizide (Glucotrol Xl) 5 mg PO ACB [facility] Last Admin: 07/10/18 10:33 Dose: 5 mg Home Med (Memantine Hcl/Donepezil Hcl [Namzaric 28 Mg-10 Mg Capsule]) 1 cap PO [facility] Last Admin: 07/09/18 21:32 Dose: 1 cap Insulin Human Lispro (Humalog) 0 units SC [facility]; Protocol Last Admin: 07/10/18 13:16 Dose: 1 u Metformin HCl (Glucophage) 1,000 mg PO BIDWM [facility] Last Admin: 07/10/18 10:34 Dose: 1,000 mg Montelukast Sodium (Singulair) 10 mg PO [facility] Last Admin: 07/09/18 21:32 Dose: 10 mg Pantoprazole Sodium (Protonix Ec Tab) 40 mg PO DAILY [facility] Last Admin: 07/10/18 10:34 Dose: 40 mg Ramipril (Altace) 5 mg PO DAILY [facility] Last Admin: 07/10/18 10:34 Dose: 5 mg - Labs Labs: 07/08/18 04:20 07/08/18 04:20 PT 12.1 Seconds (9.8-13.1) 07/07/18 14:20 INR 1.1 07/07/18 14:20 APTT 36.6 Seconds (25.6-37.1) 07/07/18 14:20 - Constitutional Appears: No Acute Distress - Head Exam Head Exam: NORMAL INSPECTION - Eye Exam Eye Exam: PERRL - ENT Exam ENT Exam: Normal Exam - Neck Exam Neck Exam: Normal Inspection - Respiratory Exam Respiratory Exam: NORMAL BREATHING PATTERN - Cardiovascular Exam Cardiovascular Exam: REGULAR RHYTHM, Murmur (2/6 LSB Ao) - GI/Abdominal Exam GI & Abdominal Exam: Soft, Normal Bowel Sounds - Extremities Exam Extremities Exam: Normal Inspection - Back Exam Back Exam: NORMAL INSPECTION - Neurological Exam Neurological Exam: Alert, Oriented x3 Additional comments: Obeys commands. - Psychiatric Exam Psychiatric exam: Normal Mood - Skin Skin Exam: Normal Color, Warm Assessment and Plan (1) Syncope Status: Acute (2) Hypertension Status: Chronic (3) Hyperglycemia Status: Acute (4) Diabetes mellitus Status: Chronic - Assessment and Plan (Free Text) Plan: Continue Altace, ASA and rest of Tx, Awaiting for stress test result
[2018-07-10] MEDS: Patient's Own Med (Memantine Hcl/Donepezil Hcl [Namzaric 28 Mg-10 Mg Capsule] 1 CAP) PO SCH (21:31)
[2018-07-10] MEDS: Divalproex 250 mg DR(BID formulation) PO SCH (21:31)
[2018-07-11] MEDS: Insulin Lispro (humaLOG) 100 Units/ml Inj SC SCH ×4 (07:30→22:35)
[2018-07-11] MEDS: GlipiZIDE 5 mg SR Tab PO SCH (09:14)
[2018-07-11] MEDS: Pantoprazole 40 mg EC Tab PO SCH (09:14)
--- NOTE | 2018-07-11 16:10 | CP.PCM.PN ---
Subjective - Date & Time of Evaluation Date of Evaluation: 07/11/18 Time of Evaluation: 12:50 - Subjective Subjective: no SOB, no C/P , no Chest congestion Objective - Vital Signs/Intake and Output Vital Signs (last 24 hours): Temp Pulse Resp BP Pulse Ox 98.7 F 77 18 129/75 92 L 07/11/18 15:54 07/11/18 15:54 07/11/18 15:54 07/11/18 15:54 07/11/18 15:54 - Medications Medications: Current Medications Aspirin (Ecotrin) 81 mg PO DAILY [facility] Last Admin: 07/11/18 09:13 Dose: 81 mg Divalproex Sodium (Depakote Dr(*Bid*)) 250 mg PO [facility] Last Admin: 07/10/18 21:31 Dose: 250 mg Glipizide (Glucotrol Xl) 5 mg PO ACB [facility] Last Admin: 07/11/18 09:14 Dose: 5 mg Home Med (Memantine Hcl/Donepezil Hcl [Namzaric 28 Mg-10 Mg Capsule]) 1 cap PO [facility] Last Admin: 07/10/18 21:31 Dose: 1 cap Insulin Human Lispro (Humalog) 0 units SC [facility]; Protocol Last Admin: 07/11/18 12:36 Dose: 2 u Metformin HCl (Glucophage) 1,000 mg PO BIDWM [facility] Last Admin: 07/11/18 09:13 Dose: 1,000 mg Montelukast Sodium (Singulair) 10 mg PO [facility] Last Admin: 07/10/18 21:31 Dose: 10 mg Pantoprazole Sodium (Protonix Ec Tab) 40 mg PO DAILY [facility] Last Admin: 07/11/18 09:14 Dose: 40 mg Ramipril (Altace) 5 mg PO DAILY [facility] Last Admin: 07/11/18 09:14 Dose: 5 mg - Labs Labs: 07/08/18 04:20 07/08/18 04:20 PT 12.1 Seconds (9.8-13.1) 07/07/18 14:20 INR 1.1 07/07/18 14:20 APTT 36.6 Seconds (25.6-37.1) 07/07/18 14:20 - Constitutional Appears: No Acute Distress - Head Exam Head Exam: NORMAL INSPECTION - Eye Exam Eye Exam: PERRL - ENT Exam ENT Exam: Normal Exam - Neck Exam Neck Exam: Normal Inspection - Respiratory Exam Respiratory Exam: Clear to Ausculation Bilateral - Cardiovascular Exam Cardiovascular Exam: REGULAR RHYTHM, Murmur (sm 2/6 LSB Ao) - GI/Abdominal Exam GI & Abdominal Exam: Soft, Normal Bowel Sounds - Extremities Exam Extremities Exam: Normal Inspection - Back Exam Back Exam: NORMAL INSPECTION - Neurological Exam Neurological Exam: Alert, CN II-XII Intact, Oriented x3. absent: Motor Sensory Deficit - Psychiatric Exam Psychiatric exam: Normal Affect, Normal Mood - Skin Skin Exam: Warm Assessment and Plan (1) Aortic stenosis Status: Acute (2) Abnormal stress test Status: Acute (3) Syncope Status: Acute (4) Hypertension Status: Chronic (5) Hyperglycemia Status: Acute (6) Diabetes mellitus Status: Chronic - Assessment and Plan (Free Text) Plan: continue Altace, Ecotrin, Humalog, Depakote, STT , for Cardiac Cath in am
[2018-07-11] MEDS: Divalproex 250 mg DR(BID formulation) PO SCH (21:44)
[2018-07-11] MEDS: Patient's Own Med (Memantine Hcl/Donepezil Hcl [Namzaric 28 Mg-10 Mg Capsule] 1 CAP) PO SCH (21:44)
[2018-07-12] MEDS: Insulin Lispro (humaLOG) 100 Units/ml Inj SC SCH ×4 (06:36→21:21)
--- NOTE | 2018-07-12 11:49 | CP.PCM.PN ---
Subjective - Date & Time of Evaluation Date of Evaluation: 07/12/18 Time of Evaluation: 11:47 - Subjective Subjective: Sophia Leon, PGY-1, Cardiology Progress Note for Dr. Moore Patient seen and evaluated at bedside. Patient had no acute overnight events. Patient denies any symptoms at this time. Objective - Vital Signs/Intake and Output Vital Signs (last 24 hours): Temp Pulse Resp BP Pulse Ox 98.1 F 84 18 151/71 H 93 L 07/12/18 07:53 07/12/18 07:53 07/12/18 07:53 07/12/18 07:53 07/12/18 07:53 - Medications Medications: Current Medications Aspirin (Ecotrin) 81 mg PO DAILY [facility] Last Admin: 07/11/18 09:13 Dose: 81 mg Divalproex Sodium (Depakote Dr(*Bid*)) 250 mg PO [facility] Last Admin: 07/11/18 21:44 Dose: 250 mg Glipizide (Glucotrol Xl) 5 mg PO ACB [facility] Last Admin: 07/11/18 09:14 Dose: 5 mg Home Med (Memantine Hcl/Donepezil Hcl [Namzaric 28 Mg-10 Mg Capsule]) 1 cap PO [facility] Last Admin: 07/11/18 21:44 Dose: 1 cap Insulin Human Lispro (Humalog) 0 units SC [facility]; Protocol Last Admin: 07/12/18 06:36 Dose: Not Given Metformin HCl (Glucophage) 1,000 mg PO BIDWM [facility] Last Admin: 07/11/18 17:54 Dose: 1,000 mg Montelukast Sodium (Singulair) 10 mg PO [facility] Last Admin: 07/11/18 21:44 Dose: 10 mg Pantoprazole Sodium (Protonix Ec Tab) 40 mg PO DAILY [facility] Last Admin: 07/11/18 09:14 Dose: 40 mg Ramipril (Altace) 5 mg PO DAILY [facility] Last Admin: 07/11/18 09:14 Dose: 5 mg - Labs Labs: 07/08/18 04:20 07/08/18 04:20 PT 12.1 Seconds (9.8-13.1) 07/07/18 14:20 INR 1.1 07/07/18 14:20 APTT 36.6 Seconds (25.6-37.1) 07/07/18 14:20 - Constitutional Appears: Well, Non-toxic, No Acute Distress - Head Exam Head Exam: ATRAUMATIC, NORMAL INSPECTION, NORMOCEPHALIC - Eye Exam Eye Exam: EOMI, PERRL - ENT Exam ENT Exam: Mucous Membranes Moist - Respiratory Exam Respiratory Exam: Clear to Auscultation Bilateral, NORMAL BREATHING PATTERN - Cardiovascular Exam Cardiovascular Exam: REGULAR RHYTHM, RRR, +S1, +S2, Systolic Murmur (systolic ejection murmur) - GI/Abdominal Exam GI & Abdominal Exam: Normal Bowel Sounds, Soft. absent: Tenderness - Extremities Exam Extremities exam: Positive for: full ROM, normal inspection. Negative for: pedal edema - Neurological Exam Neurological exam: Alert, CN II-XII Intact, Oriented x3 - Psychiatric Exam Psychiatric exam: Normal Affect, Normal Mood - Skin Skin Exam: Dry, Intact, Normal Color Assessment and Plan (1) Syncope Assessment & Plan: Orthostatic vital signs did not show significant drop in blood pressure. Echocardiogram shows moderate and AI EKG: NSR Tropx3: unremarkable Nuclear stress test: mild anterolateral defect (<5%), normal LVEF, low probability of significant CAD Patient will be scheduled for cardiac catheter[place] likely [place] [facility] [place] stenosis evaluation Status: Acute (2) Hypertension Assessment & Plan: Last blood pressure was 151/71 Continue ramipril 5 mg Status: Chronic (3) Diabetes mellitus Assessment & Plan: Patient is currently euglycemic Continue with metformin and glipizide. Status: Chronic
[2018-07-12 13:10] LABS: BLOOD UREA NITROGEN 24 mg/dl (9-20); CALCIUM 9.6 mg/dL (8.4-10.2); GFR NON-AFRICAN AMERICAN > 60
[2018-07-12 13:15] LABS: HEMOGLOBIN 13.7 g/dL (12.0-18.0); MEAN CELL VOLUME 88.8 fl (80.0-94.0); MEAN CORPUSCULAR HEMOGLOBIN 29.5 pg (27.0-31.0); MEAN CORPUSCULAR HGB CONC 33.2 g/dL (33.0-37.0); RBC 4.64 Mil/uL (4.40-5.90); RED CELL DISTRIBUTION WIDTH 14.1 % (11.5-14.5); WHITE BLOOD COUNT 7.6 K/uL (4.8-10.8)
--- NOTE | 2018-07-12 14:16 | CP.PCM.PN ---
Subjective - Date & Time of Evaluation Date of Evaluation: 07/12/18 Time of Evaluation: 09:10 - Subjective Subjective: F/U Syncope. Pt awake, no SOB, N/C, no chest pain Objective - Vital Signs/Intake and Output Vital Signs (last 24 hours): Temp Pulse Resp BP Pulse Ox 98.2 F 86 18 138/77 96 07/12/18 12:20 07/12/18 12:20 07/12/18 12:20 07/12/18 12:20 07/12/18 12:20 - Medications Medications: Current Medications Aspirin (Ecotrin) 81 mg PO DAILY [facility] Last Admin: 07/11/18 09:13 Dose: 81 mg Divalproex Sodium (Depakote Dr(*Bid*)) 250 mg PO [facility] Last Admin: 07/11/18 21:44 Dose: 250 mg Glipizide (Glucotrol Xl) 5 mg PO ACB [facility] Last Admin: 07/11/18 09:14 Dose: 5 mg Home Med (Memantine Hcl/Donepezil Hcl [Namzaric 28 Mg-10 Mg Capsule]) 1 cap PO [facility] Last Admin: 07/11/18 21:44 Dose: 1 cap Insulin Human Lispro (Humalog) 0 units SC [facility]; Protocol Last Admin: 07/12/18 06:36 Dose: Not Given Metformin HCl (Glucophage) 1,000 mg PO BIDWM [facility] Last Admin: 07/11/18 17:54 Dose: 1,000 mg Montelukast Sodium (Singulair) 10 mg PO [facility] Last Admin: 07/11/18 21:44 Dose: 10 mg Pantoprazole Sodium (Protonix Ec Tab) 40 mg PO DAILY [facility] Last Admin: 07/11/18 09:14 Dose: 40 mg Ramipril (Altace) 5 mg PO DAILY [facility] Last Admin: 07/11/18 09:14 Dose: 5 mg - Labs Labs: 07/12/18 12:15 07/12/18 12:15 PT 12.1 Seconds (9.8-13.1) 07/07/18 14:20 INR 1.1 07/07/18 14:20 APTT 36.6 Seconds (25.6-37.1) 07/07/18 14:20 - Constitutional Appears: No Acute Distress - Head Exam Head Exam: NORMAL INSPECTION - Eye Exam Eye Exam: PERRL - ENT Exam ENT Exam: Normal Exam - Neck Exam Neck Exam: Normal Inspection - Respiratory Exam Respiratory Exam: Clear to Ausculation Bilateral - Cardiovascular Exam Cardiovascular Exam: REGULAR RHYTHM, Murmur (sm 2/6 LSB Ao) - GI/Abdominal Exam GI & Abdominal Exam: Soft, Normal Bowel Sounds - Extremities Exam Extremities Exam: Normal Inspection - Back Exam Back Exam: NORMAL INSPECTION - Neurological Exam Neurological Exam: Alert, Awake, CN II-XII Intact, Oriented x3. absent: Motor Sensory Deficit - Psychiatric Exam Psychiatric exam: Normal Mood - Skin Skin Exam: Warm Assessment and Plan (1) Aortic stenosis Status: Acute (2) Abnormal stress test Status: Acute (3) Syncope Status: Acute (4) Hypertension Status: Chronic (5) Hyperglycemia Status: Acute (6) Diabetes mellitus Status: Chronic - Assessment and Plan (Free Text) Plan: For Cardiac Cath today.
[2018-07-12] MEDS: Patient's Own Med (Memantine Hcl/Donepezil Hcl [Namzaric 28 Mg-10 Mg Capsule] 1 CAP) PO SCH (21:02)
[2018-07-12] MEDS: Divalproex 250 mg DR(BID formulation) PO SCH (21:03)
[2018-07-13] MEDS: GlipiZIDE 5 mg SR Tab PO SCH (06:34)
[2018-07-13] MEDS: Insulin Lispro (humaLOG) 100 Units/ml Inj SC SCH ×4 (06:34→22:00)
--- NOTE | 2018-07-13 08:49 | CP.PCM.PN ---
Subjective - Date & Time of Evaluation Date of Evaluation: 07/13/18 Time of Evaluation: 08:46 - Subjective Subjective: Sophia Leon, PGY-1, Cardiology Progress Note for Dr. Moore Patient seen and evaluated at bedside. Patient had no acute overnight events. Patient denies any symptoms at this time. Objective - Vital Signs/Intake and Output Vital Signs (last 24 hours): Temp Pulse Resp BP Pulse Ox 99.4 F 107 H 18 129/81 93 L 07/13/18 08:00 07/13/18 08:00 07/13/18 08:00 07/13/18 08:00 07/13/18 08:00 - Medications Medications: Current Medications Aspirin (Ecotrin) 81 mg PO DAILY [facility] Last Admin: 07/11/18 09:13 Dose: 81 mg Divalproex Sodium (Depakote Dr(*Bid*)) 250 mg PO [facility] Last Admin: 07/12/18 21:03 Dose: 250 mg Glipizide (Glucotrol Xl) 5 mg PO ACB [facility] Last Admin: 07/13/18 06:34 Dose: Not Given Home Med (Memantine Hcl/Donepezil Hcl [Namzaric 28 Mg-10 Mg Capsule]) 1 cap PO [facility] Last Admin: 07/12/18 21:02 Dose: 1 cap Insulin Human Lispro (Humalog) 0 units SC [facility]; Protocol Last Admin: 07/13/18 06:34 Dose: Not Given Metformin HCl (Glucophage) 1,000 mg PO BIDWM [facility] Last Admin: 07/12/18 16:33 Dose: Not Given Montelukast Sodium (Singulair) 10 mg PO [facility] Last Admin: 07/12/18 21:02 Dose: 10 mg Pantoprazole Sodium (Protonix Ec Tab) 40 mg PO DAILY [facility] Last Admin: 07/11/18 09:14 Dose: 40 mg Ramipril (Altace) 5 mg PO DAILY [facility] Last Admin: 07/11/18 09:14 Dose: 5 mg - Labs Labs: 07/12/18 12:15 07/12/18 12:15 PT 12.1 Seconds (9.8-13.1) 07/07/18 14:20 INR 1.1 07/07/18 14:20 APTT 36.6 Seconds (25.6-37.1) 07/07/18 14:20 - Constitutional Appears: Well, Non-toxic, No Acute Distress - Head Exam Head Exam: ATRAUMATIC, NORMAL INSPECTION, NORMOCEPHALIC - Eye Exam Eye Exam: EOMI, PERRL - ENT Exam ENT Exam: Mucous Membranes Moist - Respiratory Exam Respiratory Exam: Clear to Auscultation Bilateral, NORMAL BREATHING PATTERN - Cardiovascular Exam Cardiovascular Exam: REGULAR RHYTHM, RRR, +S1, +S2, Systolic Murmur (systolic ejection murmur) - GI/Abdominal Exam GI & Abdominal Exam: Normal Bowel Sounds, Soft. absent: Tenderness - Extremities Exam Extremities exam: Positive for: full ROM, normal inspection. Negative for: pe anyi edema - Neurological Exam Neurological exam: Alert, CN II-XII Intact, Oriented x3 - Psychiatric Exam Psychiatric exam: Normal Affect, Normal Mood - Skin Skin Exam: Dry, Intact, Normal Color Assessment and Plan (1) Syncope Assessment & Plan: Orthostatic vital signs did not show significant drop in blood pressure. Echocardiogram shows moderate and AI EKG: NSR Tropx3: unremarkable Nuclear stress test: mild anterolateral defect (<5%), normal LVEF, low probability of significant CAD Cardiac catheterization scheduled today at [facility] for significant aortic stenosis evaluation Status: Acute (2) Hypertension Assessment & Plan: Last blood pressure was 129/81 Continue ramipril 5 mg. Started HCTZ 25 mg daily Status: Chronic (3) Diabetes mellitus Assessment & Plan: Patient is currently euglycemic Continue with metformin and glipizide. Status: Chronic
[2018-07-13] MEDS ORDERED: methylPREDNISolone 1 GM in Sodium Chloride 0.9% 250 ML IV STA ×2 (11:00→11:33)
--- NOTE | 2018-07-13 15:36 | CP.PCM.PN ---
Subjective - Date & Time of Evaluation Date of Evaluation: 07/13/18 Time of Evaluation: 11:40 - Subjective Subjective: F/U Syncope No A/D, N/C, no CP. Objective - Vital Signs/Intake and Output Vital Signs (last 24 hours): Temp Pulse Resp BP Pulse Ox 99.4 F 107 H 18 129/81 93 L 07/13/18 08:00 07/13/18 08:00 07/13/18 08:00 07/13/18 09:12 07/13/18 08:00 - Medications Medications: Current Medications Aspirin (Ecotrin) 81 mg PO DAILY [facility] Last Admin: 07/11/18 09:13 Dose: 81 mg Diphenhydramine HCl (Benadryl) 25 mg PO Q6 PRN PRN Reason: Itching / Pruritus Divalproex Sodium (Depakote Dr(*Bid*)) 250 mg PO [facility] Last Admin: 07/12/18 21:03 Dose: 250 mg Glipizide (Glucotrol Xl) 5 mg PO B [facility] Last Admin: 07/13/18 06:34 Dose: Not Given Home Med (Memantine Hcl/Donepezil Hcl [Namzaric 28 Mg-10 Mg Capsule]) 1 cap PO [facility] Last Admin: 07/12/18 21:02 Dose: 1 cap Hydrochlorothiazide (Hydrodiuril) 25 mg PO DAILY [facility] Insulin Human Lispro (Humalog) 0 units SC [facility]; Protocol Last Admin: 07/13/18 06:34 Dose: Not Given Metformin HCl (Glucophage) 1,000 mg PO BIDWM [facility] Last Admin: 07/13/18 09:04 Dose: Not Given Montelukast Sodium (Singulair) 10 mg PO [facility] Last Admin: 07/12/18 21:02 Dose: 10 mg Pantoprazole Sodium (Protonix Ec Tab) 40 mg PO DAILY [facility] Last Admin: 07/11/18 09:14 Dose: 40 mg Ramipril (Altace) 5 mg PO DAILY [facility] Last Admin: 07/13/18 09:12 Dose: 5 mg - Labs Labs: 07/12/18 12:15 07/12/18 12:15 PT 12.1 Seconds (9.8-13.1) 07/07/18 14:20 INR 1.1 07/07/18 14:20 APTT 36.6 Seconds (25.6-37.1) 07/07/18 14:20 - Constitutional Appears: No Acute Distress - Head Exam Head Exam: NORMAL INSPECTION - Eye Exam Eye Exam: PERRL - ENT Exam ENT Exam: Normal Exam - Respiratory Exam Respiratory Exam: Clear to Ausculation Bilateral - Cardiovascular Exam Cardiovascular Exam: REGULAR RHYTHM, Murmur (sm 2/6 LSB Ao) - GI/Abdominal Exam GI & Abdominal Exam: Soft, Normal Bowel Sounds - Extremities Exam Extremities Exam: Normal Inspection - Back Exam Back Exam: NORMAL INSPECTION - Neurological Exam Neurological Exam: Alert, CN II-XII Intact, Oriented x3. absent: Motor Sensory Deficit - Psychiatric Exam Psychiatric exam: Normal Mood - Skin Skin Exam: Warm Assessment and Plan (1) Aortic stenosis Status: Acute (2) Abnormal stress test Status: Acute (3) Syncope Status: Acute (4) Hypertension Status: Chronic (5) Hyperglycemia Status: Acute (6) Diabetes mellitus Status: Chronic - Assessment and Plan (Free Text) Plan: Continue Lopressor Hydrodiuril, ASA and rest of Tx. For Cardiac Cath.
[2018-07-13] MEDS: Pantoprazole 40 mg EC Tab PO SCH (15:51)
[2018-07-14] MEDS: Divalproex 250 mg DR(BID formulation) PO SCH ×2 (01:51→21:27)
[2018-07-14] MEDS: Patient's Own Med (Memantine Hcl/Donepezil Hcl [Namzaric 28 Mg-10 Mg Capsule] 1 CAP) PO SCH ×2 (01:51→21:28)
[2018-07-14 05:18] LABS: HEMOGLOBIN 12.2 g/dL (12.0-18.0); MEAN CELL VOLUME 89.1 fl (80.0-94.0); MEAN CORPUSCULAR HEMOGLOBIN 29.8 pg (27.0-31.0); MEAN CORPUSCULAR HGB CONC 33.5 g/dL (33.0-37.0); RBC 4.08 Mil/uL (4.40-5.90); RED CELL DISTRIBUTION WIDTH 14.3 % (11.5-14.5); WHITE BLOOD COUNT 5.5 K/uL (4.8-10.8)
[2018-07-14] MEDS: Insulin Lispro (humaLOG) 100 Units/ml Inj SC SCH ×4 (06:45→22:13)
[2018-07-14] MEDS: GlipiZIDE 5 mg SR Tab PO SCH (08:41)
[2018-07-14] MEDS: Pantoprazole 40 mg EC Tab PO SCH (08:42)
--- NOTE | 2018-07-14 13:00 | CP.PCM.PN ---
Subjective - Date & Time of Evaluation Date of Evaluation: 07/14/18 Time of Evaluation: 12:40 - Subjective Subjective: F/U Syncope, s/p cardiac Cath. Pt awake, alert Ox3, no A/D, no CP. Objective - Vital Signs/Intake and Output Vital Signs (last 24 hours): Temp Pulse Resp BP Pulse Ox 97.2 F L 67 18 147/71 95 07/14/18 12:03 07/14/18 12:03 07/14/18 12:03 07/14/18 12:03 07/14/18 12:03 - Medications Medications: Current Medications Aspirin (Ecotrin) 81 mg PO DAILY [facility] Last Admin: 07/14/18 08:44 Dose: 81 mg Atorvastatin Calcium (Lipitor) 20 mg PO DAILY [facility] Last Admin: 07/14/18 08:41 Dose: 20 mg Diphenhydramine HCl (Benadryl) 25 mg PO Q6 PRN PRN Reason: Itching / Pruritus Divalproex Sodium (Depakote Dr(*Bid*)) 250 mg PO [facility] Last Admin: 07/14/18 01:51 Dose: 250 mg Glipizide (Glucotrol Xl) 5 mg PO ACB [facility] Last Admin: 07/14/18 08:41 Dose: 5 mg Home Med (Memantine Hcl/Donepezil Hcl [Namzaric 28 Mg-10 Mg Capsule]) 1 cap PO [facility] Last Admin: 07/14/18 01:51 Dose: 1 cap Hydrochlorothiazide (Hydrodiuril) 25 mg PO DAILY [facility] Last Admin: 07/14/18 08:42 Dose: 25 mg Insulin Human Lispro (Humalog) 0 units SC [facility]; Protocol Last Admin: 07/14/18 11:54 Dose: 5 units Metformin HCl (Glucophage) 1,000 mg PO BIDWM [facility] Last Admin: 07/14/18 08:41 Dose: 1,000 mg Metoprolol Tartrate (Lopressor) 12.5 mg PO Q12 [facility] Last Admin: 07/14/18 08:42 Dose: 12.5 mg Montelukast Sodium (Singulair) 10 mg PO [facility] Last Admin: 07/14/18 01:51 Dose: 10 mg Pantoprazole Sodium (Protonix Ec Tab) 40 mg PO DAILY [facility] Last Admin: 04/03/19 08:42 Dose: 40 mg Ramipril (Altace) 5 mg PO DAILY [facility] Last Admin: 07/14/18 08:40 Dose: 5 mg - Labs Labs: 07/14/18 05:00 07/14/18 05:00 PT 12.1 Seconds (9.8-13.1) 07/07/18 14:20 INR 1.1 07/07/18 14:20 APTT 36.6 Seconds (25.6-37.1) 07/07/18 14:20 - Constitutional Appears: No Acute Distress - Head Exam Head Exam: NORMAL INSPECTION - Eye Exam Eye Exam: PERRL - ENT Exam ENT Exam: Normal Exam - Neck Exam Neck Exam: Normal Inspection - Respiratory Exam Respiratory Exam: Clear to Ausculation Bilateral - Cardiovascular Exam Cardiovascular Exam: REGULAR RHYTHM, Murmur (sm 2/6 LSB Ao) - GI/Abdominal Exam GI & Abdominal Exam: Soft, Normal Bowel Sounds - Extremities Exam Extremities Exam: Normal Inspection - Back Exam Back Exam: NORMAL INSPECTION - Neurological Exam Neurological Exam: Alert, CN II-XII Intact, Oriented x3. absent: Motor Sensory Deficit - Psychiatric Exam Psychiatric exam: Normal Mood - Skin Skin Exam: Warm Assessment and Plan (1) Aortic stenosis Status: Acute (2) Abnormal stress test Status: Acute (3) Syncope Status: Acute (4) Hypertension Status: Chronic (5) Hyperglycemia Status: Acute (6) Diabetes mellitus Status: Chronic - Assessment and Plan (Free Text) Plan: Continue Lopressor, Hydrodiuril, Lipitor, ASA, Depakote and rest of Tx., f/u Cardiac Cath
--- NOTE | 2018-07-14 15:01 | CP.PCM.PN ---
Subjective - Date & Time of Evaluation Date of Evaluation: 07/14/18 Time of Evaluation: 14:58 - Subjective Subjective: Sophia Leon, PGY-1, Cardiology Progress Note for Dr. Moore Patient seen and evaluated at bedside. Patient had no acute overnight events. Patient denies any symptoms at this time. Objective - Vital Signs/Intake and Output Vital Signs (last 24 hours): Temp Pulse Resp BP Pulse Ox 97.2 F L 67 18 147/71 95 07/14/18 12:03 07/14/18 12:03 07/14/18 12:03 07/14/18 12:03 07/14/18 12:03 - Medications Medications: Current Medications Aspirin (Ecotrin) 81 mg PO DAILY [facility] Last Admin: 07/14/18 08:44 Dose: 81 mg Atorvastatin Calcium (Lipitor) 20 mg PO DAILY [facility] Last Admin: 07/14/18 08:41 Dose: 20 mg Diphenhydramine HCl (Benadryl) 25 mg PO Q6 PRN PRN Reason: Itching / Pruritus Divalproex Sodium (Depakote Dr(*Bid*)) 250 mg PO [facility] Last Admin: 07/14/18 01:51 Dose: 250 mg Glipizide (Glucotrol Xl) 5 mg PO ACB [facility] Last Admin: 07/14/18 08:41 Dose: 5 mg Home Med (Memantine Hcl/Donepezil Hcl [Namzaric 28 Mg-10 Mg Capsule]) 1 cap PO HS [facility] Last Admin: 07/14/18 01:51 Dose: 1 cap Hydrochlorothiazide (Hydrodiuril) 25 mg PO DAILY [facility] Last Admin: 07/14/18 08:42 Dose: 25 mg Insulin Human Lispro (Humalog) 0 units SC [facility]; Protocol Last Admin: 07/14/18 11:54 Dose: 5 units Metformin HCl (Glucophage) 1,000 mg PO BIDWM [facility] Last Admin: 07/14/18 08:41 Dose: 1,000 mg Metoprolol Tartrate (Lopressor) 12.5 mg PO Q12 [facility] Last Admin: 07/14/18 08:42 Dose: 12.5 mg Montelukast Sodium (Singulair) 10 mg PO [facility] Last Admin: 07/14/18 01:51 Dose: 10 mg Pantoprazole Sodium (Protonix Ec Tab) 40 mg PO DAILY [facility] Last Admin: 07/14/18 08:42 Dose: 40 mg Ramipril (Altace) 5 mg PO DAILY [facility] Last Admin: 07/14/18 08:40 Dose: 5 mg - Labs Labs: 07/14/18 05:00 07/14/18 05:00 PT 12.1 Seconds (9.8-13.1) 07/07/18 14:20 INR 1.1 07/07/18 14:20 APTT 36.6 Seconds (25.6-37.1) 07/07/18 14:20 - Constitutional Appears: Well, Non-toxic, No Acute Distress - Head Exam Head Exam: ATRAUMATIC, NORMAL INSPECTION, NORMOCEPHALIC - Eye Exam Eye Exam: EOMI, PERRL - ENT Exam ENT Exam: Mucous Membranes Moist - Respiratory Exam Respiratory Exam: Clear to Auscultation Bilateral, NORMAL BREATHING PATTERN - Cardiovascular Exam Cardiovascular Exam: REGULAR RHYTHM, RRR, +S1, +S2, Systolic Murmur (systolic ejection murmur) - GI/Abdominal Exam GI & Abdominal Exam: Normal Bowel Sounds, Soft. absent: Tenderness - Extremities Exam Extremities exam: Positive for: full ROM, normal inspection. Negative for: pedal edema - Neurological Exam Neurological exam: Alert, CN II-XII Intact, Oriented x3 - Psychiatric Exam Psychiatric exam: Normal Affect, Normal Mood - Skin Skin Exam: Dry, Intact, Normal Color Assessment and Plan (1) Syncope Assessment & Plan: Orthostatic vital signs did not show significant drop in blood pressure. Echocardiogram shows moderate and AI EKG: NSR Tropx3: unremarkable Nuclear stress test: mild anterolateral defect (<5%), normal LVEF, low probability of significant CAD Cardiac catheterization: mild left main has 40% stensosi, LAD proximal high grade 95% stenosis, mid LAD long diffuse 80% lesion, gives off to small diagonal branch and left circumflex runs in AV groove, had mid 55% stenosis and gives off obtuse marginal branch with mild to moderate obstructive disease. PDA has 90% lesions. Patient should be transferred to [place] for further intervention. Status: Acute (2) Hypertension Assessment & Plan: Continue ramipril 5 mg, HCTZ 25 mg daily Status: Chronic (3) Diabetes mellitus Assessment & Plan: Patient is currently euglycemic Continue with metformin and glipizide. Status: Chronic
[2018-07-15] MEDS: Insulin Lispro (humaLOG) 100 Units/ml Inj SC SCH ×4 (06:32→22:27)
[2018-07-15] MEDS: GlipiZIDE 5 mg SR Tab PO SCH (09:01)
[2018-07-15] MEDS: Pantoprazole 40 mg EC Tab PO SCH (09:01)
--- NOTE | 2018-07-15 09:12 | CP.PCM.PCO ---
Assessment/Plan - Assessment Assessment: Pt. s/p cardiac cath w/ , revealed mod to severe / CAD pt. is for transfer to [place] once bed available under , Dr.Mark Luo to [facility] for stent vs. CABG Transfer center [phone] aware.
--- NOTE | 2018-07-15 14:22 | CP.PCM.PN ---
Subjective - Date & Time of Evaluation Date of Evaluation: 07/15/18 Time of Evaluation: 14:20 - Subjective Subjective: Sophia Leon, PGY-1, Cardiology Progress Note for Dr. Moore Patient seen and evaluated at bedside. Patient had no acute overnight events. Patient denies any symptoms at this time. Objective - Vital Signs/Intake and Output Vital Signs (last 24 hours): Temp Pulse Resp BP Pulse Ox 97.7 F 81 18 128/67 95 07/15/18 11:49 07/15/18 11:49 07/15/18 11:49 07/15/18 11:49 07/15/18 11:49 - Medications Medications: Current Medications Aspirin (Ecotrin) 81 mg PO DAILY [facility] Last Admin: 07/15/18 09:01 Dose: 81 mg Atorvastatin Calcium (Lipitor) 20 mg PO DAILY [facility] Last Admin: 07/15/18 09:01 Dose: 20 mg Diphenhydramine HCl (Benadryl) 25 mg PO Q6 PRN PRN Reason: Itching / Pruritus Divalproex Sodium (Depakote Dr(*Bid*)) 250 mg PO [facility] Last Admin: 07/14/18 21:27 Dose: 250 mg Glipizide (Glucotrol Xl) 5 mg PO ACB [facility] Last Admin: 07/15/18 09:01 Dose: 5 mg Home Med (Memantine Hcl/Donepezil Hcl [Namzaric 28 Mg-10 Mg Capsule]) 1 cap PO HS [facility] Last Admin: 07/14/18 21:28 Dose: 1 cap Hydrochlorothiazide (Hydrodiuril) 25 mg PO DAILY [facility] Last Admin: 07/15/18 09:02 Dose: 25 mg Insulin Human Lispro (Humalog) 0 units SC [facility]; Protocol Last Admin: 07/15/18 12:03 Dose: Not Given Metformin HCl (Glucophage) 1,000 mg PO BIDWM [facility] Last Admin: 07/15/18 09:03 Dose: 1,000 mg Metoprolol Tartrate (Lopressor) 12.5 mg PO Q12 [facility] Last Admin: 07/15/18 09:02 Dose: 12.5 mg Montelukast Sodium (Singulair) 10 mg PO [facility] Last Admin: 07/14/18 21:28 Dose: 10 mg Pantoprazole Sodium (Protonix Ec Tab) 40 mg PO DAILY [facility] Last Admin: 07/15/18 09:01 Dose: 40 mg Ramipril (Altace) 5 mg PO DAILY [facility] Last Admin: 07/15/18 09:00 Dose: 5 mg - Labs Labs: 07/14/18 05:00 07/14/18 05:00 PT 12.1 Seconds (9.8-13.1) 07/07/18 14:20 INR 1.1 07/07/18 14:20 APTT 36.6 Seconds (25.6-37.1) 07/07/18 14:20 - Constitutional Appears: Well, Non-toxic, No Acute Distress - Head Exam Head Exam: ATRAUMATIC, NORMAL INSPECTION, NORMOCEPHALIC - Eye Exam Eye Exam: EOMI, PERRL - ENT Exam ENT Exam: Mucous Membranes Moist - Respiratory Exam Respiratory Exam: Clear to Auscultation Bilateral, NORMAL BREATHING PATTERN - Cardiovascular Exam Cardiovascular Exam: REGULAR RHYTHM, RRR, +S1, +S2, Systolic Murmur (systolic ejection murmur) - GI/Abdominal Exam GI & Abdominal Exam: Normal Bowel Sounds, Soft. absent: Tenderness - Extremities Exam Extremities exam: Positive for: full ROM, normal inspection. Negative for: pedal edema - Neurological Exam Neurological exam: Alert, CN II-XII Intact, Oriented x3 - Psychiatric Exam Psychiatric exam: Normal Affect, Normal Mood - Skin Skin Exam: Dry, Intact, Normal Color Assessment and Plan (1) Syncope Assessment & Plan: Orthostatic vital signs did not show significant drop in blood pressure. Echocardiogram shows moderate and AI EKG: NSR Tropx3: unremarkable Nuclear stress test: mild anterolateral defect (<5%), normal LVEF, low probability of significant CAD Cardiac catheterization: mild left main has 40% stensosi, LAD proximal high grade 95% stenosis, mid LAD long diffuse 80% lesion, gives off to small diagonal branch and left circumflex runs in AV groove, had mid 55% stenosis and gives off obtuse marginal branch with mild to moderate obstructive disease. PDA has 90% lesions. Patient will be transferred to [place] for further intervention including PCI vs. CABG. Status: Acute (2) Hypertension Assessment & Plan: Continue ramipril 5 mg, lopressor, HCTZ 25 mg daily Status: Chronic (3) Diabetes mellitus Assessment & Plan: Patient is currently euglycemic Continue with metformin and glipizide. Status: Chronic (4) CAD (coronary artery disease) Assessment & Plan: Cardiac catheterization: mild left main has 40% stensosi, LAD proximal high grade 95% stenosis, mid LAD long diffuse 80% lesion, gives off to small diagonal branch and left circumflex runs in AV groove, had mid 55% stenosis and gives off obtuse marginal branch with mild to moderate obstructive disease. PDA has 90% lesions. Continue aspirin, lipitor, lopressor, ramipril. Status: Acute
[2018-07-15] MEDS: Divalproex 250 mg DR(BID formulation) PO SCH (21:20)
[2018-07-15] MEDS: Patient's Own Med (Memantine Hcl/Donepezil Hcl [Namzaric 28 Mg-10 Mg Capsule] 1 CAP) PO SCH (21:20)
--- NOTE | 2018-07-16 07:19 | CP.PCM.PN ---
Subjective - Date & Time of Evaluation Date of Evaluation: 07/16/18 Time of Evaluation: 07:18 - Subjective Subjective: Sophia Leon, PGY-1, Cardiology Progress Note for Dr. Moore Patient seen and evaluated at bedside. Patient had no acute overnight events. Patient denies any symptoms at this time. Objective - Vital Signs/Intake and Output Vital Signs (last 24 hours): Temp Pulse Resp BP Pulse Ox 97.4 F L 68 18 141/83 95 07/16/18 05:01 07/16/18 05:01 07/16/18 05:01 07/16/18 05:01 07/16/18 05:01 - Medications Medications: Current Medications Aspirin (Ecotrin) 81 mg PO DAILY [facility] Last Admin: 07/15/18 09:01 Dose: 81 mg Atorvastatin Calcium (Lipitor) 20 mg PO DAILY [facility] Last Admin: 07/15/18 09:01 Dose: 20 mg Diphenhydramine HCl (Benadryl) 25 mg PO Q6 PRN PRN Reason: Itching / Pruritus Divalproex Sodium (Depakote Dr(*Bid*)) 250 mg PO [facility] Last Admin: 07/15/18 21:20 Dose: 250 mg Glipizide (Glucotrol Xl) 5 mg PO ACB [facility] Last Admin: 07/15/18 09:01 Dose: 5 mg Home Med (Memantine Hcl/Donepezil Hcl [Namzaric 28 Mg-10 Mg Capsule]) 1 cap PO HS [facility] Last Admin: 07/15/18 21:20 Dose: 1 cap Hydrochlorothiazide (Hydrodiuril) 25 mg PO DAILY [facility] Last Admin: 07/15/18 09:02 Dose: 25 mg Insulin Human Lispro (Humalog) 0 units SC [facility]; Protocol Last Admin: 07/15/18 22:27 Dose: Not Given Metformin HCl (Glucophage) 1,000 mg PO BIDWM [facility] Last Admin: 07/15/18 16:39 Dose: 1,000 mg Metoprolol Tartrate (Lopressor) 12.5 mg PO Q12 [facility] Last Admin: 07/15/18 21:20 Dose: 12.5 mg Montelukast Sodium (Singulair) 10 mg PO [facility] Last Admin: 07/15/18 21:20 Dose: 10 mg Pantoprazole Sodium (Protonix Ec Tab) 40 mg PO DAILY [facility] Last Admin: 07/15/18 09:01 Dose: 40 mg Ramipril (Altace) 5 mg PO DAILY [facility] Last Admin: 07/15/18 09:00 Dose: 5 mg - Labs Labs: 07/14/18 05:00 07/14/18 05:00 PT 12.1 Seconds (9.8-13.1) 07/07/18 14:20 INR 1.1 07/07/18 14:20 APTT 36.6 Seconds (25.6-37.1) 07/07/18 14:20 - Constitutional Appears: Well, Non-toxic, No Acute Distress - Head Exam Head Exam: ATRAUMATIC, NORMAL INSPECTION, NORMOCEPHALIC - Eye Exam Eye Exam: EOMI, PERRL - ENT Exam ENT Exam: Mucous Membranes Moist - Respiratory Exam Respiratory Exam: Clear to Auscultation Bilateral, NORMAL BREATHING PATTERN - Cardiovascular Exam Cardiovascular Exam: REGULAR RHYTHM, RRR, +S1, +S2, Systolic Murmur (systolic ejection murmur) - GI/Abdominal Exam GI & Abdominal Exam: Normal Bowel Sounds, Soft. absent: Tenderness - Extremities Exam Extremities exam: Positive for: full ROM, normal inspection. Negative for: pedal edema - Neurological Exam Neurological exam: Alert, CN II-XII Intact, Oriented x3 - Psychiatric Exam Psychiatric exam: Normal Affect, Normal Mood - Skin Skin Exam: Dry, Intact, Normal Color Assessment and Plan (1) Syncope Assessment & Plan: Orthostatic vital signs did not show significant drop in blood pressure. Echocardiogram shows moderate and AI EKG: NSR Tropx3: unremarkable Nuclear stress test: mild anterolateral defect (<5%), normal LVEF, low probability of significant CAD Cardiac catheterization: mild left main has 40% stensosi, LAD proximal high grade 95% stenosis, mid LAD long diffuse 80% lesion, gives off to small diagonal branch and left circumflex runs in AV groove, had mid 55% stenosis and gives off obtuse marginal branch with mild to moderate obstructive disease. PDA has 90% lesions. Patient will be transferred to [place] for further intervention including PCI vs. CABG. Status: Acute (2) Hypertension Assessment & Plan: Continue ramipril 5 mg, lopressor, HCTZ 25 mg daily Status: Chronic (3) Diabetes mellitus Assessment & Plan: Patient is currently euglycemic Continue with metformin and glipizide. Status: Chronic (4) CAD (coronary artery disease) Assessment & Plan: Cardiac catheterization: mild left main has 40% stensosi, LAD proximal high grade 95% stenosis, mid LAD long diffuse 80% lesion, gives off to small diagonal branch and left circumflex runs in AV groove, had mid 55% stenosis and gives off obtuse marginal branch with mild to moderate obstructive disease. PDA has 90% lesions. Continue aspirin, lipitor, lopressor, ramipril. Status: Acute
[2018-07-16] MEDS: Pantoprazole 40 mg EC Tab PO SCH (08:32)
[2018-07-16] MEDS: GlipiZIDE 5 mg SR Tab PO SCH (08:33)
[2018-07-16] MEDS: Insulin Lispro (humaLOG) 100 Units/ml Inj SC SCH ×4 (08:35→22:00)
--- NOTE | 2018-07-16 17:02 | CP.PCM.PN ---
Subjective - Date & Time of Evaluation Date of Evaluation: 07/16/18 Time of Evaluation: 10:40 - Subjective Subjective: F/U Syncope. no SOB, no C/P, N/C Objective - Vital Signs/Intake and Output Vital Signs (last 24 hours): Temp Pulse Resp BP Pulse Ox 97.5 F L 79 18 126/71 96 07/16/18 12:00 07/16/18 12:00 07/16/18 12:00 07/16/18 12:00 07/16/18 12:00 - Medications Medications: Current Medications Aspirin (Ecotrin) 81 mg PO DAILY [facility] Last Admin: 07/16/18 08:34 Dose: 81 mg Atorvastatin Calcium (Lipitor) 20 mg PO DAILY [facility] Last Admin: 07/16/18 08:32 Dose: 20 mg Diphenhydramine HCl (Benadryl) 25 mg PO Q6 PRN PRN Reason: Itching / Pruritus Divalproex Sodium (Depakote Dr(*Bid*)) [address] [facility] Last Admin: 07/15/18 21:20 Dose: 250 mg Glipizide (Glucotrol Xl) 5 mg PO ACB [facility] Last Admin: 07/16/18 08:33 Dose: 5 mg Home Med (Memantine Hcl/Donepezil Hcl [Namzaric 28 Mg-10 Mg Capsule]) [address] [facility] Last Admin: 07/15/18 21:20 Dose: 1 cap Hydrochlorothiazide (Hydrodiuril) 25 mg PO DAILY [facility] Last Admin: 07/16/18 08:35 Dose: 25 mg Insulin Human Lispro (Humalog) 0 units SC [facility]; Protocol Last Admin: 07/16/18 16:34 Dose: 1 units Metformin HCl (Glucophage) 1,000 mg PO BIDWM [facility] Last Admin: 07/16/18 16:34 Dose: 1,000 mg Metoprolol Tartrate (Lopressor) 12.5 mg PO Q12 [facility] Last Admin: 07/16/18 08:34 Dose: 12.5 mg Montelukast Sodium (Singulair) [address] [facility] Last Admin: 07/15/18 21:20 Dose: 10 mg Pantoprazole Sodium (Protonix Ec Tab) 40 mg PO DAILY [facility] Last Admin: 07/16/18 08:32 Dose: 40 mg Ramipril (Altace) 5 mg PO DAILY [facility] Last Admin: 07/16/18 08:32 Dose: 5 mg - Labs Labs: 07/14/18 05:00 07/14/18 05:00 PT 12.1 Seconds (9.8-13.1) 07/07/18 14:20 INR 1.1 07/07/18 14:20 APTT 36.6 Seconds (25.6-37.1) 07/07/18 14:20 - Constitutional Appears: No Acute Distress - Head Exam Head Exam: NORMAL INSPECTION - Eye Exam Eye Exam: PERRL - ENT Exam ENT Exam: Normal Exam - Neck Exam Neck Exam: Normal Inspection - Respiratory Exam Respiratory Exam: NORMAL BREATHING PATTERN - Cardiovascular Exam Cardiovascular Exam: REGULAR RHYTHM, Murmur (sm 2/6 LSB Ao) - GI/Abdominal Exam GI & Abdominal Exam: Soft, Normal Bowel Sounds - Extremities Exam Extremities Exam: Normal Inspection - Back Exam Back Exam: NORMAL INSPECTION - Neurological Exam Neurological Exam: Alert, CN II-XII Intact, Oriented x3. absent: Motor Sensory Deficit - Psychiatric Exam Psychiatric exam: Normal Mood - Skin Skin Exam: Warm Assessment and Plan (1) Aortic stenosis Status: Acute (2) Abnormal stress test Status: Acute (3) Syncope Status: Acute (4) Hypertension Status: Chronic (5) Hyperglycemia Status: Acute (6) Diabetes mellitus Status: Chronic - Assessment and Plan (Free Text) Plan: Discussed with Filling Separator, minimal invasive DENISE-LAD by pass and mid TAVR, awaiting for bed in [facility]
[2018-07-16] MEDS: Patient's Own Med (Memantine Hcl/Donepezil Hcl [Namzaric 28 Mg-10 Mg Capsule] 1 CAP) PO SCH (21:25)
[2018-07-16] MEDS: Divalproex 250 mg DR(BID formulation) PO SCH (21:26)
[2018-07-17 08:00] VITALS: O2SAT 95
[2018-07-17] MEDS: GlipiZIDE 5 mg SR Tab PO SCH (08:36)
[2018-07-17] MEDS: Insulin Lispro (humaLOG) 100 Units/ml Inj SC SCH ×3 (08:36→16:52)
[2018-07-17] MEDS: Pantoprazole 40 mg EC Tab PO SCH (08:37)
[2018-07-17 16:42] VITALS: BP 107/66; PULSE 83; RESP 16; TEMP 97.8
--- NOTE | 2018-07-17 17:19 | CP.PCM.DIS ---
Provider - Provider Date of Admission: 07/07/18 16:48 Attending physician: Haim Beckwith MD Consults: 07/07/18 22:39 Cardiology Consult Routine Comment: Consulting Provider: Anthony Moore Consulting Physician: Anthony Moore Reason for Consult: syncope Diagnosis - Discharge Diagnosis (1) Aortic stenosis Status: Acute (2) CAD (coronary artery disease) Status: Acute (3) Abnormal stress test Status: Acute (4) Syncope Status: Acute Priority: High (5) Hypertension Status: Chronic Priority: High (6) Hyperglycemia Status: Acute Priority: High (7) Diabetes mellitus Status: Chronic Priority: Medium Hospital Course - Lab Results Lab Results: Most Recent Lab Values WBC 5.5 K/uL (4.8-10.8) 07/14/18 05:00 RBC 4.08 Mil/uL (4.40-5.90) L 07/14/18 05:00 Hgb 12.2 g/dL (12.0-18.0) 07/14/18 05:00 Hct 36.4 % (35.0-51.0) 07/14/18 05:00 MCV 89.1 fl (80.0-94.0) 07/14/18 05:00 MCH 29.8 pg (27.0-31.0) 07/14/18 05:00 MCHC 33.5 g/dL (33.0-37.0) 07/14/18 05:00 RDW 14.3 % (11.5-14.5) 07/14/18 05:00 Plt Count 186 K/uL (130-400) 07/14/18 05:00 MPV 9.0 fl (7.2-11.7) 07/07/18 14:20 Neut % (Auto) 55.8 % (50.0-75.0) 07/07/18 14:20 Lymph % (Auto) 25.9 % (20.0-40.0) 07/07/18 14:20 Bee % (Auto) 7.0 % (0.0-10.0) 07/07/18 14:20 Eos % (Auto) 9.7 % (0.0-4.0) H 07/07/18 14:20 Baso % (Auto) 1.6 % (0.0-2.0) 07/07/18 14:20 Neut # (Auto) 3.3 K/uL (1.8-7.0) 07/07/18 14:20 Lymph # (Auto) 1.5 K/uL (1.0-4.3) 07/07/18 14:20 Bee # (Auto) 0.4 K/uL (0.0-0.8) 07/07/18 14:20 Eos # (Auto) 0.6 K/uL (0.0-0.7) 07/07/18 14:20 Baso # (Auto) 0.1 K/uL (0.0-0.2) 07/07/18 14:20 PT 12.1 Seconds (9.8-13.1) 07/07/18 14: INR 1.1 07/07/18 14:20 APTT 36.6 Seconds (25.6-37.1) 07/07/18 14:20 Sodium 138 mmol/l (132-148) 07/14/18 05:00 Potassium 4.1 MMOL/L (3.6-5.0) 07/14/18 05:00 Chloride 99 mmol/L (98-107) 07/14/18 05:00 Carbon Dioxide 27 mmol/L (22-30) 07/14/18 05:00 Anion Gap 16 (10-20) 07/14/18 05:00 BUN 42 mg/dl (9-20) H 07/14/18 05:00 Creatinine 1.4 mg/dl (0.8-1.5) 07/14/18 05:00 Est GFR ( Amer) 60 07/14/18 05:00 Est GFR (Non-Af Amer) 50 07/14/18 05:00 POC Glucose (mg/dL) 216 mg/dL (65-110) H 07/17/18 16:08 Random Glucose 381 mg/dL (75-110) H 07/14/18 05:00 Hemoglobin A1c 9.6 % (4.2-6.5) H 07/08/18 04:20 Calcium 9.0 mg/dL (8.4-10.2) 07/14/18 05:00 Phosphorus 3.4 mg/dl (2.5-4.5) 07/07/18 21:02 Magnesium 1.9 MG/DL (1.6-2.3) 07/07/18 21:02 Total Bilirubin 0.4 mg/dl (0.2-1.3) 07/07/18 14:20 AST 23 U/L (17-59) 07/07/18 14:20 ALT 27 U/L (21-72) 07/07/18 14:20 Alkaline Phosphatase 89 U/L (38-126) 07/07/18 14:20 Troponin I < 0.0120 ng/mL (0.00-0.120) 07/08/18 12:45 NT-Pro-B Natriuret Pep 246 pg/ml (0-900) 07/08/18 17:58 Total Protein 7.3 G/DL (6.3-8.2) 07/07/18 14:20 Albumin 4.0 g/dL (3.5-5.0) 07/07/18 14:20 Globulin 3.3 gm/dL (2.2-3.9) 07/07/18 14:20 Albumin/Globulin Ratio 1.2 (1.0-2.1) 07/07/18 14:20 Triglycerides 179 mg/DL (0-149) H 07/08/18 04:20 Cholesterol 210 mg/dL (0-199) H 07/08/18 04:20 LDL Cholesterol Direct 132 mg/dL (0-129) H 07/08/18 04:20 HDL Cholesterol 36 MG/DL (30-70) 07/08/18 04:20 Vitamin B12 309 pg/mL (239-931) 07/08/18 09:40 RBC Folate 643 ng/mL RBC (>280) 07/08/18 09:40 Thyroxine (T4) 7.35 ug/dl (5.5-11.0) 07/08/18 04:20 Total T3 1.05 nmol/L (1.49-2.60) L 07/08/18 04:20 TSH 3rd Generation 3.27 mIU/ML (0.46-4.68) 07/08/18 04:20 Urine Color Yellow (YELLOW) 07/07/18 18:39 Urine Clarity Slighty-cloudy (Clear) 07/07/18 18:39 Urine pH 6.0 (5.0-8.0) 07/07/18 18:39 Ur Specific [place] 1.020 (1.003-1.030) 07/07/18 18:39 Urine Protein 30 mg/dL (NEGATIVE) 07/07/18 18:39 Urine Glucose (UA) 50 mg/dL (NEGATIVE) 07/07/18 18:39 Urine Ketones Negative mg/dL (NEGATIVE) 07/07/18 18:39 Urine Blood Negative (NEGATIVE) 07/07/18 18:39 Urine Nitrate Negative (NEGATIVE) 07/07/18 18:39 Urine Bilirubin Negative (NEGATIVE) 07/07/18 18:39 Urine Urobilinogen 4.0 mg/dL (0.2-1.0) 07/07/18 18:39 Ur Leukocyte Esterase Neg [place]/uL (Negative) 07/07/18 18:39 Urine RBC (Auto) 3 /hpf (0-3) 07/07/18 18:39 Urine Microscopic WBC 2 /hpf (0-5) 07/07/18 18:39 Urine Bacteria Rare (<OCC) 07/07/18 18:39 Hyaline Casts 6-10 /hpf (0-2) H 07/07/18 18:39 - Hospital Course Hospital Course: 73 years old male ER [facility] [place] CC: Syncope, no previous history of syncopal episode PMX: Dementia, HTN, DM 2, HCL Echo: Moderate LVH, LVEF 55-60%, moderate aortic valvular stenosis, area 1.5 cm2 Carotid artery ultrasound and head neck CTA no significant stenosis in bilateral common carotid arteries, internal carotid arteries, external carotid arteries, vertebral arteries EEG: Normal Myocardial perfusion pharmacologic scan: Mild anterolateral wall defect( <5% myocardial involvement, low probability for significant obstructive CAD, normal LVEF community health consultant: Moderate with syncope, Stress Test mildly abnormal, plan Cardiac Cath Cardiac Cath: Mild left main 40% stenosis, LAD proximal high-grade 95% stenosis, mid LAD long diffuse 80% lesion, small diagonal branch and left circumflex 55% stenosis, PDA 90% lesions Patient today 07-17-18 is transferred to [facility], discussed with Platform Engineer, plan minimally invasive LIMALAD bypass and mid TAVR, Patient is discharged in improved and stable condition, see MAR instruction/medication, Patient will be followed by Platform Engineer consultant intern in [facility], above was discussed with PMD Dr. Dr Cortes Discharge Exam - Head Exam Head Exam: NORMAL INSPECTION - Eye Exam Eye Exam: PERRL - ENT Exam ENT Exam: Normal Exam - Neck Exam Neck exam: Normal Inspection - Respiratory Exam Respiratory Exam: Clear to PA & Lateral - Cardiovascular Exam Cardiovascular Exam: REGULAR RHYTHM, Systolic Murmur Additional comments: 05/19 LSB Ao - GI/Abdominal Exam GI & Abdominal Exam: Normal Bowel Sounds, Soft - Extremities Exam Extremities exam: normal inspection - Back Exam Back exam: NORMAL INSPECTION - Psychiatric Exam Psychiatric exam: Normal Affect, Normal Mood - Skin Skin Exam: Warm Discharge Plan - Discharge Medications Prescriptions: hydroCHLOROthiazide [Hydrodiuril] 25 mg PO DAILY #30 tab Atorvastatin [Lipitor] 20 mg PO DAILY #30 tab Metoprolol Tartrate [Lopressor] 12.5 mg PO Q12 #60 tab - Follow Up Plan Condition: STABLE Disposition: Trans to Other Acute Care Hosp Instructions: Syncope (Fainting) (DC) Additional Instructions: Dx: , CAD, Transfer to [facility] Referrals: Stephane Cortes MD [Family Provider] -
== END 2018-07-17 19:18 | disposition short-term general hospital (02) | DRG 287 ==
LOC: H.ER 13:14 → H.ERHOLD 16:48 → H.TEL 21:45
PROVIDERS: ADMIT Internal Medicine Pulmonary Disease; ATTEND Internal Medicine Pulmonary Disease
PROC: 3E02340 Introduction of Influenza Vaccine into Muscle, Percutaneous Approach (ICD-10-PCS; 2018-07-08)
PROC: 4A023N8 Measurement of Cardiac Sampling and Pressure, Bilateral, Percutaneous Approach (ICD-10-PCS; principal; 2018-07-13)
PROC: B206YZZ Plain Radiography of Right and Left Heart using Other Contrast (ICD-10-PCS; 2018-07-13)
DX: I35.0 Nonrheumatic aortic (valve) stenosis (principal); I25.10 Atherosclerotic heart disease of native coronary artery without angina pectoris; I10 Essential (primary) hypertension; F03.90 Unspecified dementia, unspecified severity, without behavioral disturbance, psychotic disturbance, mood disturbance, and anxiety; E11.65 Type 2 diabetes mellitus with hyperglycemia; E78.00 Pure hypercholesterolemia, unspecified; R94.39 Abnormal result of other cardiovascular function study; Z23 Encounter for immunization; Z79.82 Long term (current) use of aspirin; Z79.84 Long term (current) use of oral hypoglycemic drugs; Z87.891 Personal history of nicotine dependence